=== PATIENT | male | born 1960 | race Caucasian/White ===

== ENCOUNTER 2019-01-10 09:53 | Emergency (ER) | payer OTHER ==
[2019-01-10 10:02] VITALS: BMI 29.0
--- NOTE | 2019-01-10 11:15 | EKG ---
Test Reason : Blood Pressure : / mmHG Vent. Rate : 073 BPM Atrial Rate : 073 BPM P-R Int : 176 ms QRS Dur : 084 ms QT Int : 404 ms P-R-T Axes : 021 -23 137 degrees QTc Int : 445 ms NORMAL SINUS RHYTHM LEFT VENTRICULAR HYPERTROPHY WITH REPOLARIZATION ABNORMALITY ABNORMAL ECG WHEN COMPARED WITH ECG OF 08-AUG-2004 19:06, T WAVE VARIATION Confirmed by CHICHI ARROYO MD ([id number]) on 01/10/2019 11:15:18 AM Referred By: Confirmed By:CHICHI ARROYO MD
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
[2019-01-10 13:47] LABS: BASO % 1.1 % (0-2.0); EOS % 1.7 % (0-4.5); HEMATOCRIT 38.1 % (35.4-49); LYMPH % 28.7 % (8-40); MCH 30.9 pg (25.7-33.7); MCHC 34.2 g/dl (32.0-35.9); MEAN CELL VOLUME 90.3 fl (80-96); MEAN PLT VOLUME 7.7 fl (7.5-11.1); MONO % 7.4 % (3.8-10.2); NEUT % 61.1 % (42.8-82.8); PLATELET COUNT 166 K/MM3 (134-434); RBC 4.22 M/mm3 (4.00-5.60); RDW 13.3 % (11.9-15.9); WHITE BLOOD COUNT 6.2 K/mm3 (4.0-10.0)
[2019-01-10] MEDS ORDERED: BACITRACIN 0.9 GM PACKET ONE (14:11)
[2019-01-10 14:12] LABS: ALBUMIN 2.9 g/dl (3.4-5.0); ALK PHOS 103 U/L (45-117); ANION GAP 7 MMOL/L (8-16); BILIRUBIN,TOTAL 0.6 mg/dL (0.2-1); BLOOD UREA NITROGEN 20.6 mg/dL (7-18); CALCIUM 8.3 mg/dL (8.5-10.1); CHLORIDE 109 mmol/L (98-107); CO2 26 mmol/L (21-32); CREATININE 1.6 mg/dL (0.55-1.3); GLUCOSE,RANDOM 137 mg/dL (74-106); POTASSIUM 3.8 mmol/L (3.5-5.1); SGOT/AST 20 U/L (15-37); SGPT/ALT 26 U/L (13-61); SODIUM 142 mmol/L (136-145); TOT PROT 5.9 g/dl (6.4-8.2)
[2019-01-10 14:26] VITALS: BP 149/86; PULSE 77; TEMP 98.5
[2019-01-11] MEDS ORDERED: BACITRACIN 15 GM TUBE TOPICAL OINTMENT TP SCH (10:00)
== END 2019-01-10 14:53 | disposition home or self-care (01) ==
LOC: JER 09:53
DX: L08.9 Local infection of the skin and subcutaneous tissue, unspecified (principal); I10 Essential (primary) hypertension; E78.5 Hyperlipidemia, unspecified; I25.10 Atherosclerotic heart disease of native coronary artery without angina pectoris; E11.9 Type 2 diabetes mellitus without complications; G89.29 Other chronic pain; W22.8XXA Striking against or struck by other objects, initial encounter; Y93.89 Activity, other specified; Y92.89 Other specified places as the place of occurrence of the external cause
CPT/HCPCS: 36415; 71045-TC-FY; 80048; 80053; 84484; 85025; 93005; 93010; 99282-25

== ENCOUNTER 2021-10-25 10:58 | Inpatient (IN) | payer OTHER ==
[2021-10-25] MEDS ORDERED: SODIUM CHLORIDE 0.9% 500 ML INFUS.BAG IV ONE (11:48)
[2021-10-25 12:01] LABS: VENOUS BASE EXCESS -7.2 mmol/L (-2-2); VENOUS O2 SATURATION 86.4 % (70-80); VENOUS PCO2 47.1 mmHg (38-52)
[2021-10-25 12:01] LABS: HEMATOCRIT 36.6 % (35.4-49); HEMOGLOBIN 11.9 GM/dL (11.7-16.9); MCH 29.3 pg (25.7-33.7); MCHC 32.4 g/dl (32.0-35.9); MEAN CELL VOLUME 90.5 fl (80-96); MEAN PLT VOLUME 7.3 fl (7.5-11.1); PLATELET COUNT 223 10^3/uL (134-434); RBC 4.04 M/mm3 (4.00-5.60)
[2021-10-25 12:06] LABS: VENOUS PH 7.246 (7.310-7.410)
[2021-10-25] MEDS ORDERED: AZITHROMYCIN IVPB 500 MG in DEXTROSE 5%-WATER - 250 ML IVPB ONE (12:13)
[2021-10-25] MEDS ORDERED: CEFTRIAXONE 1 GM in DEXTROSE 5%-WATER - 100 ML IVPB ONE (12:13)
[2021-10-25] MEDS ORDERED: ACETAMINOPHEN 1000 MG/100 ML BAG IVPB ONE (12:15)
[2021-10-25] MEDS ORDERED: CEFTRIAXONE 1 GM/50 ML BAG ONE (12:26)
[2021-10-25] MEDS ORDERED: AZITHROMYCIN IVPB 500 MG/250 ML BAG IVPB ONE (12:26)
[2021-10-25] MEDS ORDERED: ACETAMINOPHEN INJECTION 100 ML IVPB ONE (12:27)
[2021-10-25 12:28] LABS: CALCIUM 8.8 mg/dL (8.5-10.1)
[2021-10-25 12:29] LABS: BLOOD UREA NITROGEN 41.1 mg/dL (7-18)
[2021-10-25 12:31] LABS: CREATININE 2.5 mg/dL (0.55-1.3)
[2021-10-25 12:32] LABS: BILIRUBIN,TOTAL 1.4 mg/dL (0.2-1); TOT PROT 6.3 g/dl (6.4-8.2)
[2021-10-25 12:35] LABS: N-TERMINAL BNP 9745.5 pg/ml (5-125)
[2021-10-25 12:39] LABS: ANISOCYTOSIS 1+; MACROCYTOSIS 0
[2021-10-25] MEDS ORDERED: ASPIRIN 81 MG CHEWABLE TABLETS ONE (16:44)
[2021-10-25] MEDS: ASPIRIN 81 MG CHEWABLE TABLETS PO SCH (16:58)
[2021-10-25] MEDS: INSULIN SLIDING SCALE (NOVOLOG) 1 VIAL SQ SCH ×2 (16:58→22:13)
[2021-10-25] MEDS ORDERED: PIPERACILLIN/TAZOB 2.25 GM 2.25 GM in DEXTROSE 5%-WATER - 50 ML IVPB SCH (18:00)
[2021-10-25 18:14] LABS: EPI CELLS 13 /uL (0-25.1); HYALINE CASTS 3 /uL (0-3.1); URINE APPEARANCE CLEAR; URINE BACTERIA 6 /uL (0-1359); URINE BILIRUBIN NEGATIVE (NEGATIVE); URINE COLOR YELLOW; URINE GLUCOSE (UA) 2+ (NEGATIVE); URINE KETONE NEGATIVE (NEGATIVE); URINE LEUK ESTERASE NEGATIVE (NEGATIVE); URINE NITRITE NEGATIVE (NEGATIVE); URINE PROTEIN 4+ (NEGATIVE); URINE RBC 4 /uL (0-23.9); URINE UROBILINOGEN 0.2 mg/dL (0.2-1.0); URINE WBC 11 /uL (0-25.8)
[2021-10-25] MEDS ORDERED: PIPERACILLIN/TAZOB 2.25 GM 2.25 GM/50 ML BAG IVPB ONE (18:43)
[2021-10-25] MEDS ORDERED: METOPROLOL TARTRATE 50 MG TABLET (FP) PO ONE (18:58)
[2021-10-25] MEDS ORDERED: HEPARIN NA (PORCINE) 5,000 UNITS/ML 1ML VIAL IVPUSH ONE (18:59)
[2021-10-25] MEDS ORDERED: HEPARIN NA (PORCINE) 5,000 UNITS/ML 1ML VIAL IVPUSH PRN (19:01)
[2021-10-25] MEDS: PIPERACILLIN/TAZOB 2.25 GM 2.25 GM in DEXTROSE 5%-WATER - 50 ML IVPB SCH (19:01)
[2021-10-25] MEDS ORDERED: METOPROLOL TARTRATE 50 MG TABLET (FP) ONE (20:23)
[2021-10-25] MEDS ORDERED: HEPARIN NA (PORCINE) 5,000 UNITS/ML 1ML VIAL ONE (20:24)
[2021-10-25] MEDS ORDERED: HEPARIN INFUSION - 25,000 UNITS/500 ML INFUS.BAG IVPB ONE (20:24)
[2021-10-25] MEDS: HEPARIN - 25,000 UNIT in SODIUM CHLORIDE 495 ML IV SCH (20:37)
[2021-10-25] MEDS ORDERED: SODIUM CHLORIDE 1,000 ML IV SCH (21:00)
[2021-10-25] MEDS ORDERED: HEPARIN NA (PORCINE) 5,000 UNITS/ML 1ML VIAL SQ SCH (22:00)
[2021-10-25] MEDS ORDERED: METOPROLOL TARTRATE 50 MG TABLET (FP) PO SCH (22:00)
[2021-10-25] MEDS ORDERED: ATORVASTATIN CA 40 MG TABLET (FP) PO SCH (22:00)
[2021-10-25] MEDS ORDERED: ATORVASTATIN CA 80 MG TABLET (FP) ONE (22:03)
[2021-10-25] MEDS ORDERED: INSULIN SLIDING SCALE (NOVOLOG) 1 VIAL SQ ONE (22:03)
[2021-10-25] MEDS: ATORVASTATIN CA 80 MG TABLET (FP) PO SCH (22:14)
[2021-10-26] MEDS ORDERED: DEXTROSE 5%-WATER - 50 ML IVPB ONE ×2 (01:19→09:21)
[2021-10-26] MEDS ORDERED: PIPERACILLIN/TAZOBACTAM 2.25 GM VIAL IVPB ONE ×3 (01:19→14:00)
[2021-10-26] MEDS: PIPERACILLIN/TAZOB 2.25 GM 2.25 GM in DEXTROSE 5%-WATER - 50 ML IVPB SCH ×4 (01:52→17:52)
[2021-10-26] MEDS: HEPARIN NA (PORCINE) 5,000 UNITS/ML 1ML VIAL IVPUSH PRN (04:13)
[2021-10-26] MEDS: INSULIN SLIDING SCALE (NOVOLOG) 1 VIAL SQ SCH ×4 (06:14→23:09)
[2021-10-26 07:33] LABS: BASO % 0.6 % (0-2.0); HEMATOCRIT 30.9 % (35.4-49); HEMOGLOBIN 10.3 GM/dL (11.7-16.9); LYMPH % 8.6 % (8-40); MCH 29.9 pg (25.7-33.7); MCHC 33.3 g/dl (32.0-35.9); MEAN CELL VOLUME 89.7 fl (80-96); MEAN PLT VOLUME 7.9 fl (7.5-11.1); MONO % 6.3 % (3.8-10.2); NEUT % 84.5 % (42.8-82.8); PLATELET COUNT 168 10^3/uL (134-434); RBC 3.45 M/mm3 (4.00-5.60); RDW 14.9 % (11.9-15.9); WHITE BLOOD COUNT 16.6 K/mm3 (4.0-10.0)
[2021-10-26 07:47] LABS: CALCIUM 8.1 mg/dL (8.5-10.1)
[2021-10-26 07:48] LABS: MAGNESIUM 2.1 mg/dL (1.8-2.4)
[2021-10-26 07:49] LABS: ALBUMIN 2.6 g/dl (3.4-5.0); BLOOD UREA NITROGEN 39.1 mg/dL (7-18)
[2021-10-26 07:51] LABS: CREATININE 2.7 mg/dL (0.55-1.3)
[2021-10-26 07:52] LABS: PHOSPHOROUS 3.7 mg/dL (2.5-4.9)
[2021-10-26 07:53] LABS: TOT PROT 5.5 g/dl (6.4-8.2)
[2021-10-26] MEDS: PANTOPRAZOLE 40 MG TABLET PO SCH (09:47)
[2021-10-26] MEDS: CLOPIDOGREL BISULFATE 75 MG TABLET (FP) PO SCH (09:47)
[2021-10-26] MEDS: ASPIRIN 81 MG CHEWABLE TABLETS PO SCH (09:47)
[2021-10-26] MEDS ORDERED: METOPROLOL TARTRATE 50 MG TABLET (FP) PO SCH (10:00)
[2021-10-26] MEDS ORDERED: ASPIRIN 81 MG CHEWABLE TABLETS PO SCH (10:00)
[2021-10-26] MEDS ORDERED: oxyCODONE HCL 5 MG TABLET PO PRN (11:43)
[2021-10-26] MEDS: ACETAMINOPHEN 325 MG TABLET (FP) PO PRN (12:02)
[2021-10-26] MEDS: FUROSEMIDE 40 MG/4 ML INJECTABLE VIAL IVPUSH SCH (14:11)
[2021-10-26] MEDS: METOPROLOL TARTRATE 50 MG TABLET (FP) PO SCH ×2 (14:12→23:15)
[2021-10-26] MEDS: NITROGLYCERIN 2% OINTMENT - 1GM PACKET TD SCH ×3 (14:13→23:30)
[2021-10-26] MEDS: HEPARIN - 25,000 UNIT in SODIUM CHLORIDE 495 ML IV SCH (23:15)
[2021-10-26] MEDS: ATORVASTATIN CA 80 MG TABLET (FP) PO SCH (23:15)
[2021-10-26] MEDS: GABAPENTIN 300 MG CAPSULE PO SCH (23:15)
[2021-10-27] MEDS ORDERED: DEXTROSE 5%-WATER - 50 ML IVPB ONE ×3 (02:06→18:18)
[2021-10-27] MEDS ORDERED: PIPERACILLIN/TAZOBACTAM 2.25 GM VIAL IVPB ONE ×3 (02:06→18:18)
[2021-10-27] MEDS: PIPERACILLIN/TAZOB 2.25 GM 2.25 GM in DEXTROSE 5%-WATER - 50 ML IVPB SCH ×3 (02:41→18:33)
[2021-10-27] MEDS: METOPROLOL TARTRATE 50 MG TABLET (FP) PO SCH ×3 (06:25→21:49)
[2021-10-27] MEDS: INSULIN SLIDING SCALE (NOVOLOG) 1 VIAL SQ SCH ×4 (06:25→21:49)
[2021-10-27] MEDS: NITROGLYCERIN 2% OINTMENT - 1GM PACKET TD SCH ×3 (06:29→21:39)
[2021-10-27 07:47] LABS: BASO % 1.1 % (0-2.0); EOS % 0.4 % (0-4.5); HEMATOCRIT 32.8 % (35.4-49); HEMOGLOBIN 10.7 GM/dL (11.7-16.9); LYMPH % 14.1 % (8-40); MCH 29.5 pg (25.7-33.7); MCHC 32.7 g/dl (32.0-35.9); MEAN CELL VOLUME 90.3 fl (80-96); MEAN PLT VOLUME 8.2 fl (7.5-11.1); MONO % 6.7 % (3.8-10.2); NEUT % 77.7 % (42.8-82.8); PLATELET COUNT 191 10^3/uL (134-434); RBC 3.64 M/mm3 (4.00-5.60); RDW 15.5 % (11.9-15.9); WHITE BLOOD COUNT 13.7 K/mm3 (4.0-10.0)
[2021-10-27 08:11] LABS: CHLORIDE 111 mmol/L (98-107); SODIUM 141 mmol/L (136-145)
[2021-10-27 08:18] LABS: CALCIUM 8.7 mg/dL (8.5-10.1)
[2021-10-27 08:19] LABS: ALBUMIN 2.8 g/dl (3.4-5.0); ANION GAP 10 MMOL/L (8-16); BLOOD UREA NITROGEN 47.6 mg/dL (7-18); CO2 21 mmol/L (21-32); GLUCOSE,RANDOM 128 mg/dL (74-106); MAGNESIUM 2.2 mg/dL (1.8-2.4)
[2021-10-27 08:22] LABS: CREATININE 2.9 mg/dL (0.55-1.3); PHOSPHOROUS 4.4 mg/dL (2.5-4.9); SGOT/AST 111 U/L (15-37); SGPT/ALT 108 U/L (13-61)
[2021-10-27 08:23] LABS: BILIRUBIN,TOTAL 1.3 mg/dL (0.2-1); TOT PROT 5.9 g/dl (6.4-8.2)
[2021-10-27 08:24] LABS: ALK PHOS 90 U/L (45-117)
[2021-10-27] MEDS: HEPARIN NA (PORCINE) 5,000 UNITS/ML 1ML VIAL IVPUSH PRN ×2 (09:26→16:48)
[2021-10-27] MEDS: GABAPENTIN 300 MG CAPSULE PO SCH ×2 (09:28→21:49)
[2021-10-27] MEDS: ASPIRIN 81 MG CHEWABLE TABLETS PO SCH (09:28)
[2021-10-27] MEDS: PANTOPRAZOLE 40 MG TABLET PO SCH (09:28)
[2021-10-27] MEDS: CLOPIDOGREL BISULFATE 75 MG TABLET (FP) PO SCH (09:28)
[2021-10-27] MEDS: FUROSEMIDE 40 MG/4 ML INJECTABLE VIAL IVPUSH SCH (09:28)
[2021-10-27] MEDS: PSYLLIUM 5.85 GM PACKET PO SCH (12:31)
[2021-10-27] MEDS: ATORVASTATIN CA 80 MG TABLET (FP) PO SCH (21:49)
[2021-10-28] MEDS ORDERED: PIPERACILLIN/TAZOBACTAM 2.25 GM VIAL IVPB ONE ×3 (00:23→17:19)
[2021-10-28] MEDS ORDERED: DEXTROSE 5%-WATER - 50 ML IVPB ONE ×3 (00:25→17:19)
[2021-10-28] MEDS: NITROGLYCERIN 2% OINTMENT - 1GM PACKET TD SCH ×4 (00:35→17:53)
[2021-10-28] MEDS: HEPARIN - 25,000 UNIT in SODIUM CHLORIDE 495 ML IV SCH (01:00)
[2021-10-28] MEDS: PIPERACILLIN/TAZOB 2.25 GM 2.25 GM in DEXTROSE 5%-WATER - 50 ML IVPB SCH ×3 (01:34→17:53)
[2021-10-28] MEDS: METOPROLOL TARTRATE 50 MG TABLET (FP) PO SCH ×3 (06:39→21:39)
[2021-10-28] MEDS: INSULIN SLIDING SCALE (NOVOLOG) 1 VIAL SQ SCH ×4 (06:39→21:44)
[2021-10-28] MEDS: ACETAMINOPHEN 325 MG TABLET (FP) PO PRN (06:44)
[2021-10-28 07:40] LABS: BASO % 1.1 % (0-2.0); EOS % 1.4 % (0-4.5); HEMOGLOBIN 9.6 GM/dL (11.7-16.9); LYMPH % 15.3 % (8-40); MCH 29.9 pg (25.7-33.7); MCHC 33.3 g/dl (32.0-35.9); MEAN PLT VOLUME 8.1 fl (7.5-11.1); MONO % 6.8 % (3.8-10.2); NEUT % 75.4 % (42.8-82.8); PLATELET COUNT 166 10^3/uL (134-434); RBC 3.22 M/mm3 (4.00-5.60); RDW 15.1 % (11.9-15.9); WHITE BLOOD COUNT 8.9 K/mm3 (4.0-10.0)
[2021-10-28 08:05] LABS: BLOOD UREA NITROGEN 55.4 mg/dL (7-18); CALCIUM 8.1 mg/dL (8.5-10.1)
[2021-10-28 08:08] LABS: CREATININE 3.1 mg/dL (0.55-1.3)
[2021-10-28 08:10] LABS: BLOOD UREA NITROGEN 53.4 mg/dL (7-18); CREATININE 3.2 mg/dL (0.55-1.3)
[2021-10-28 08:11] LABS: ALBUMIN 2.4 g/dl (3.4-5.0); BILIRUBIN,TOTAL 1.1 mg/dL (0.2-1); MAGNESIUM 2.2 mg/dL (1.8-2.4); TOT PROT 5.5 g/dl (6.4-8.2)
[2021-10-28 08:13] LABS: BILIRUBIN,DIRECT 0.3 mg/dL (0.0-0.2); PHOSPHOROUS 4.1 mg/dL (2.5-4.9)
[2021-10-28] MEDS: GABAPENTIN 300 MG CAPSULE PO SCH ×2 (09:44→21:39)
[2021-10-28] MEDS: ASPIRIN 81 MG CHEWABLE TABLETS PO SCH (09:44)
[2021-10-28] MEDS: CLOPIDOGREL BISULFATE 75 MG TABLET (FP) PO SCH (09:44)
[2021-10-28] MEDS: PANTOPRAZOLE 40 MG TABLET PO SCH (09:44)
[2021-10-28] MEDS: PSYLLIUM 5.85 GM PACKET PO SCH (13:46)
[2021-10-28] MEDS ORDERED: HEPARIN NA (PORCINE) 5,000 UNITS/ML 1ML VIAL IVPUSH PRN ×2 (21:28)
[2021-10-28] MEDS ORDERED: HEPARIN - 25,000 UNIT in SODIUM CHLORIDE 495 ML IV SCH (21:30)
[2021-10-28] MEDS: ATORVASTATIN CA 80 MG TABLET (FP) PO SCH (21:39)
[2021-10-29] MEDS ORDERED: PIPERACILLIN/TAZOBACTAM 2.25 GM VIAL IVPB ONE ×3 (00:50→19:15)
[2021-10-29] MEDS ORDERED: DEXTROSE 5%-WATER - 50 ML IVPB ONE ×3 (00:50→19:15)
[2021-10-29] MEDS: NITROGLYCERIN 2% OINTMENT - 1GM PACKET TD SCH ×4 (01:00→19:16)
[2021-10-29] MEDS: PIPERACILLIN/TAZOB 2.25 GM 2.25 GM in DEXTROSE 5%-WATER - 50 ML IVPB SCH ×3 (02:30→19:16)
[2021-10-29] MEDS: METOPROLOL TARTRATE 50 MG TABLET (FP) PO SCH ×3 (05:52→22:17)
[2021-10-29] MEDS: INSULIN SLIDING SCALE (NOVOLOG) 1 VIAL SQ SCH ×4 (06:48→22:20)
[2021-10-29 07:49] LABS: CALCIUM 8.2 mg/dL (8.5-10.1)
[2021-10-29 07:50] LABS: BLOOD UREA NITROGEN 51.3 mg/dL (7-18)
[2021-10-29] MEDS: ASPIRIN 81 MG CHEWABLE TABLETS PO SCH (09:42)
[2021-10-29] MEDS: GABAPENTIN 300 MG CAPSULE PO SCH ×2 (09:43→22:12)
[2021-10-29] MEDS: CLOPIDOGREL BISULFATE 75 MG TABLET (FP) PO SCH (09:43)
[2021-10-29] MEDS: PANTOPRAZOLE 40 MG TABLET PO SCH (09:43)
[2021-10-29] MEDS: PSYLLIUM 5.85 GM PACKET PO SCH (09:43)
[2021-10-29] MEDS ORDERED: FUROSEMIDE 40 MG/4 ML INJECTABLE VIAL IVPUSH ONE (13:17)
[2021-10-29] MEDS: HEPARIN NA (PORCINE) 5,000 UNITS/ML 1ML VIAL SQ SCH ×2 (14:49→22:13)
[2021-10-29] MEDS: ATORVASTATIN CA 80 MG TABLET (FP) PO SCH (22:12)
[2021-10-29] MEDS: hydrALAZINE HCL 25 MG TABLET (FP) PO SCH (22:17)
[2021-10-30] MEDS: NITROGLYCERIN 2% OINTMENT - 1GM PACKET TD SCH ×4 (01:00→17:36)
[2021-10-30] MEDS ORDERED: PIPERACILLIN/TAZOBACTAM 2.25 GM VIAL IVPB ONE ×3 (01:15→17:28)
[2021-10-30] MEDS ORDERED: DEXTROSE 5%-WATER - 50 ML IVPB ONE ×3 (01:15→17:28)
[2021-10-30] MEDS: PIPERACILLIN/TAZOB 2.25 GM 2.25 GM in DEXTROSE 5%-WATER - 50 ML IVPB SCH ×3 (01:30→17:36)
[2021-10-30] MEDS: HEPARIN NA (PORCINE) 5,000 UNITS/ML 1ML VIAL SQ SCH ×3 (06:26→21:07)
[2021-10-30] MEDS: METOPROLOL TARTRATE 50 MG TABLET (FP) PO SCH ×3 (06:26→21:08)
[2021-10-30] MEDS: hydrALAZINE HCL 25 MG TABLET (FP) PO SCH ×3 (06:26→21:06)
[2021-10-30] MEDS: INSULIN SLIDING SCALE (NOVOLOG) 1 VIAL SQ SCH ×4 (06:26→21:15)
[2021-10-30] MEDS ORDERED: INSULIN (LEVEMIR) 100 UNITS/ML UNITS SQ SCH (07:00)
[2021-10-30 07:23] LABS: BASO % 1.4 % (0-2.0); HEMATOCRIT 29.1 % (35.4-49); HEMOGLOBIN 9.7 GM/dL (11.7-16.9); LYMPH % 21.4 % (8-40); MCH 29.9 pg (25.7-33.7); MCHC 33.3 g/dl (32.0-35.9); MEAN CELL VOLUME 89.9 fl (80-96); MEAN PLT VOLUME 8.1 fl (7.5-11.1); MONO % 9.6 % (3.8-10.2); NEUT % 64.6 % (42.8-82.8); PLATELET COUNT 175 10^3/uL (134-434); RBC 3.24 M/mm3 (4.00-5.60); RDW 15.3 % (11.9-15.9); WHITE BLOOD COUNT 6.5 K/mm3 (4.0-10.0)
[2021-10-30 07:56] LABS: CALCIUM 8.4 mg/dL (8.5-10.1)
[2021-10-30 07:58] LABS: CREATININE 3.1 mg/dL (0.55-1.3); PHOSPHOROUS 4.8 mg/dL (2.5-4.9)
[2021-10-30 07:59] LABS: ALBUMIN 2.5 g/dl (3.4-5.0); MAGNESIUM 2.3 mg/dL (1.8-2.4)
[2021-10-30 08:00] LABS: BILIRUBIN,TOTAL 0.8 mg/dL (0.2-1); TOT PROT 5.6 g/dl (6.4-8.2)
[2021-10-30] MEDS: GABAPENTIN 300 MG CAPSULE PO SCH ×2 (10:05→21:07)
[2021-10-30] MEDS: PANTOPRAZOLE 40 MG TABLET PO SCH (10:05)
[2021-10-30] MEDS: CLOPIDOGREL BISULFATE 75 MG TABLET (FP) PO SCH (10:05)
[2021-10-30] MEDS: ASPIRIN 81 MG CHEWABLE TABLETS PO SCH (10:05)
[2021-10-30] MEDS: INSULIN (LEVEMIR) 100 UNITS/ML UNITS SQ SCH (10:12)
[2021-10-30 10:48] VITALS: BMI 28.8
[2021-10-30] MEDS: FUROSEMIDE 40 MG/4 ML INJECTABLE VIAL IVPUSH SCH (12:04)
[2021-10-30] MEDS: PSYLLIUM 5.85 GM PACKET PO SCH (12:05)
[2021-10-30 12:17] LABS: ANTIGLOMERULAR BASEMENT MEN.AB 5 units (0-20)
[2021-10-30 16:08] LABS: ATYPICAL pANCA <1:20 titer (Neg:<1:20); C-ANCA <1:20 titer (Neg:<1:20)
[2021-10-30] MEDS: ATORVASTATIN CA 80 MG TABLET (FP) PO SCH (21:07)
[2021-10-31] MEDS ORDERED: DEXTROSE 5%-WATER - 50 ML IVPB ONE ×3 (01:21→16:48)
[2021-10-31] MEDS ORDERED: PIPERACILLIN/TAZOBACTAM 2.25 GM VIAL IVPB ONE ×3 (01:21→16:48)
[2021-10-31] MEDS: NITROGLYCERIN 2% OINTMENT - 1GM PACKET TD SCH ×4 (01:28→17:37)
[2021-10-31] MEDS: PIPERACILLIN/TAZOB 2.25 GM 2.25 GM in DEXTROSE 5%-WATER - 50 ML IVPB SCH ×3 (01:28→17:37)
[2021-10-31] MEDS: hydrALAZINE HCL 25 MG TABLET (FP) PO SCH ×3 (06:44→22:39)
[2021-10-31] MEDS: HEPARIN NA (PORCINE) 5,000 UNITS/ML 1ML VIAL SQ SCH ×3 (06:44→22:39)
[2021-10-31] MEDS: METOPROLOL TARTRATE 50 MG TABLET (FP) PO SCH ×3 (06:45→22:39)
[2021-10-31] MEDS: INSULIN SLIDING SCALE (NOVOLOG) 1 VIAL SQ SCH ×4 (06:47→23:00)
[2021-10-31] MEDS: INSULIN (LEVEMIR) 100 UNITS/ML UNITS SQ SCH (06:54)
[2021-10-31 07:45] LABS: CALCIUM 8.4 mg/dL (8.5-10.1)
[2021-10-31 07:46] LABS: ALBUMIN 2.5 g/dl (3.4-5.0); BLOOD UREA NITROGEN 51.5 mg/dL (7-18); HEMATOCRIT 29.3 % (35.4-49); HEMOGLOBIN 9.7 GM/dL (11.7-16.9); MAGNESIUM 2.4 mg/dL (1.8-2.4); MCH 29.9 pg (25.7-33.7); MCHC 33.1 g/dl (32.0-35.9); MEAN CELL VOLUME 90.4 fl (80-96); MEAN PLT VOLUME 8.3 fl (7.5-11.1); PLATELET COUNT 183 10^3/uL (134-434); RBC 3.24 M/mm3 (4.00-5.60); RDW 14.9 % (11.9-15.9); WHITE BLOOD COUNT 6.6 K/mm3 (4.0-10.0)
[2021-10-31 07:49] LABS: CREATININE 3.3 mg/dL (0.55-1.3)
[2021-10-31 07:51] LABS: BILIRUBIN,TOTAL 0.8 mg/dL (0.2-1); TOT PROT 5.9 g/dl (6.4-8.2)
[2021-10-31] MEDS: PANTOPRAZOLE 40 MG TABLET PO SCH (09:35)
[2021-10-31] MEDS: PSYLLIUM 5.85 GM PACKET PO SCH (09:35)
[2021-10-31] MEDS: FUROSEMIDE 40 MG/4 ML INJECTABLE VIAL IVPUSH SCH (09:35)
[2021-10-31] MEDS: CLOPIDOGREL BISULFATE 75 MG TABLET (FP) PO SCH (09:35)
[2021-10-31] MEDS: ASPIRIN 81 MG CHEWABLE TABLETS PO SCH (09:35)
[2021-10-31] MEDS: GABAPENTIN 300 MG CAPSULE PO SCH ×2 (09:35→22:38)
[2021-10-31] MEDS: BACITRACIN 15 GM TUBE TOPICAL OINTMENT TP SCH (19:07)
[2021-10-31] MEDS: ATORVASTATIN CA 80 MG TABLET (FP) PO SCH (22:37)
[2021-10-31] MEDS: MELATONIN 5 MG TABLETS PO PRN (22:38)
[2021-11-01] MEDS: ACETAMINOPHEN 325 MG TABLET (FP) PO PRN (00:10)
[2021-11-01] MEDS: NITROGLYCERIN 2% OINTMENT - 1GM PACKET TD SCH ×5 (00:12→17:38)
[2021-11-01] MEDS ORDERED: PIPERACILLIN/TAZOBACTAM 2.25 GM VIAL IVPB ONE ×3 (02:07→21:16)
[2021-11-01] MEDS ORDERED: DEXTROSE 5%-WATER - 50 ML IVPB ONE ×3 (02:08→21:17)
[2021-11-01] MEDS: PIPERACILLIN/TAZOB 2.25 GM 2.25 GM in DEXTROSE 5%-WATER - 50 ML IVPB SCH ×3 (02:55→21:58)
[2021-11-01] MEDS: HEPARIN NA (PORCINE) 5,000 UNITS/ML 1ML VIAL SQ SCH ×3 (07:12→21:59)
[2021-11-01] MEDS: hydrALAZINE HCL 25 MG TABLET (FP) PO SCH ×2 (07:12→13:17)
[2021-11-01] MEDS: METOPROLOL TARTRATE 50 MG TABLET (FP) PO SCH ×3 (07:13→21:58)
[2021-11-01] MEDS: INSULIN (LEVEMIR) 100 UNITS/ML UNITS SQ SCH (07:18)
[2021-11-01] MEDS: INSULIN SLIDING SCALE (NOVOLOG) 1 VIAL SQ SCH ×4 (07:18→22:06)
[2021-11-01] MEDS: ASPIRIN 81 MG CHEWABLE TABLETS PO SCH (10:02)
[2021-11-01] MEDS: CLOPIDOGREL BISULFATE 75 MG TABLET (FP) PO SCH (10:02)
[2021-11-01] MEDS: PANTOPRAZOLE 40 MG TABLET PO SCH (10:02)
[2021-11-01] MEDS: GABAPENTIN 300 MG CAPSULE PO SCH ×2 (10:02→21:58)
[2021-11-01] MEDS: FUROSEMIDE 40 MG/4 ML INJECTABLE VIAL IVPUSH SCH (10:02)
[2021-11-01] MEDS: BACITRACIN 15 GM TUBE TOPICAL OINTMENT TP SCH (10:03)
[2021-11-01] MEDS: PSYLLIUM 5.85 GM PACKET PO SCH (10:03)
[2021-11-01 21:05] LABS: BASO % 1.3 % (0-2.0); EOS % 1.1 % (0-4.5); HEMATOCRIT 31.6 % (35.4-49); HEMOGLOBIN 10.7 GM/dL (11.7-16.9); MCH 30.1 pg (25.7-33.7); MCHC 33.8 g/dl (32.0-35.9); MEAN CELL VOLUME 89.1 fl (80-96); MEAN PLT VOLUME 8.1 fl (7.5-11.1); MONO % 7.7 % (3.8-10.2); NEUT % 80.9 % (42.8-82.8); PLATELET COUNT 194 10^3/uL (134-434); RBC 3.54 M/mm3 (4.00-5.60); RDW 15.4 % (11.9-15.9); WHITE BLOOD COUNT 9.8 K/mm3 (4.0-10.0)
[2021-11-01 21:26] LABS: CALCIUM 8.6 mg/dL (8.5-10.1)
[2021-11-01 21:27] LABS: ALBUMIN 2.8 g/dl (3.4-5.0); MAGNESIUM 2.4 mg/dL (1.8-2.4)
[2021-11-01 21:30] LABS: CREATININE 3.6 mg/dL (0.55-1.3); PHOSPHOROUS 4.8 mg/dL (2.5-4.9)
[2021-11-01 21:31] LABS: TOT PROT 6.4 g/dl (6.4-8.2)
[2021-11-01 21:32] LABS: BILIRUBIN,TOTAL 0.4 mg/dL (0.2-1)
[2021-11-01] MEDS: ATORVASTATIN CA 80 MG TABLET (FP) PO SCH (21:56)
[2021-11-01] MEDS: MELATONIN 5 MG TABLETS PO PRN (21:59)
[2021-11-02] MEDS ORDERED: PIPERACILLIN/TAZOBACTAM 2.25 GM VIAL IVPB ONE ×3 (03:21→19:39)
[2021-11-02] MEDS ORDERED: DEXTROSE 5%-WATER - 50 ML IVPB ONE ×3 (03:21→19:40)
[2021-11-02] MEDS: PIPERACILLIN/TAZOB 2.25 GM 2.25 GM in DEXTROSE 5%-WATER - 50 ML IVPB SCH ×3 (06:01→21:59)
[2021-11-02] MEDS: INSULIN SLIDING SCALE (NOVOLOG) 1 VIAL SQ SCH ×4 (06:05→22:21)
[2021-11-02] MEDS: hydrALAZINE HCL 25 MG TABLET (FP) PO SCH ×3 (06:07→21:59)
[2021-11-02] MEDS: NITROGLYCERIN 2% OINTMENT - 1GM PACKET TD SCH ×3 (06:07→17:29)
[2021-11-02] MEDS: INSULIN (LEVEMIR) 100 UNITS/ML UNITS SQ SCH (06:08)
[2021-11-02] MEDS: HEPARIN NA (PORCINE) 5,000 UNITS/ML 1ML VIAL SQ SCH ×3 (06:08→21:58)
[2021-11-02] MEDS: METOPROLOL TARTRATE 50 MG TABLET (FP) PO SCH ×3 (06:23→21:59)
[2021-11-02 08:03] LABS: HEMATOCRIT 29.7 % (35.4-49); HEMOGLOBIN 9.9 GM/dL (11.7-16.9); MCH 29.9 pg (25.7-33.7); MCHC 33.4 g/dl (32.0-35.9); MEAN CELL VOLUME 89.6 fl (80-96); MEAN PLT VOLUME 8.4 fl (7.5-11.1); PLATELET COUNT 193 10^3/uL (134-434); RBC 3.31 M/mm3 (4.00-5.60); WHITE BLOOD COUNT 8.4 K/mm3 (4.0-10.0)
[2021-11-02 08:07] LABS: BASO % 1.3 % (0-2.0); HEMATOCRIT 29.3 % (35.4-49); HEMOGLOBIN 9.9 GM/dL (11.7-16.9); LYMPH % 11.8 % (8-40); MCH 30.1 pg (25.7-33.7); MCHC 33.7 g/dl (32.0-35.9); MEAN CELL VOLUME 89.4 fl (80-96); MEAN PLT VOLUME 8.3 fl (7.5-11.1); MONO % 8.6 % (3.8-10.2); NEUT % 77.3 % (42.8-82.8); PLATELET COUNT 204 10^3/uL (134-434); RBC 3.28 M/mm3 (4.00-5.60); WHITE BLOOD COUNT 8.5 K/mm3 (4.0-10.0)
[2021-11-02 08:22] LABS: CALCIUM 8.6 mg/dL (8.5-10.1)
[2021-11-02 08:23] LABS: ALBUMIN 2.7 g/dl (3.4-5.0); MAGNESIUM 2.2 mg/dL (1.8-2.4)
[2021-11-02 08:25] LABS: CREATININE 3.4 mg/dL (0.55-1.3); PHOSPHOROUS 4.4 mg/dL (2.5-4.9)
[2021-11-02 08:28] LABS: BILIRUBIN,TOTAL 1.1 mg/dL (0.2-1); TOT PROT 6.2 g/dl (6.4-8.2)
[2021-11-02 08:29] LABS: BLOOD UREA NITROGEN 54.2 mg/dL (7-18)
[2021-11-02] MEDS: FUROSEMIDE 40 MG/4 ML INJECTABLE VIAL IVPUSH SCH (10:39)
[2021-11-02] MEDS: PANTOPRAZOLE 40 MG TABLET PO SCH (10:39)
[2021-11-02] MEDS: GABAPENTIN 300 MG CAPSULE PO SCH ×2 (10:40→22:05)
[2021-11-02] MEDS: CLOPIDOGREL BISULFATE 75 MG TABLET (FP) PO SCH (10:40)
[2021-11-02] MEDS: ASPIRIN 81 MG CHEWABLE TABLETS PO SCH (10:40)
[2021-11-02] MEDS: BACITRACIN 15 GM TUBE TOPICAL OINTMENT TP SCH (10:40)
[2021-11-02] MEDS: PSYLLIUM 5.85 GM PACKET PO SCH (16:11)
[2021-11-02] MEDS: ACETAMINOPHEN 325 MG TABLET (FP) PO PRN (22:00)
[2021-11-02] MEDS: ATORVASTATIN CA 80 MG TABLET (FP) PO SCH (22:00)
[2021-11-03] MEDS: NITROGLYCERIN 2% OINTMENT - 1GM PACKET TD SCH ×4 (06:26→18:46)
[2021-11-03] MEDS: PIPERACILLIN/TAZOB 2.25 GM 2.25 GM in DEXTROSE 5%-WATER - 50 ML IVPB SCH ×3 (06:26→22:52)
[2021-11-03] MEDS: hydrALAZINE HCL 25 MG TABLET (FP) PO SCH ×3 (06:27→22:52)
[2021-11-03] MEDS: HEPARIN NA (PORCINE) 5,000 UNITS/ML 1ML VIAL SQ SCH ×3 (06:27→22:52)
[2021-11-03] MEDS: METOPROLOL TARTRATE 50 MG TABLET (FP) PO SCH ×3 (06:28→22:52)
[2021-11-03] MEDS: INSULIN (LEVEMIR) 100 UNITS/ML UNITS SQ SCH (06:28)
[2021-11-03] MEDS: INSULIN SLIDING SCALE (NOVOLOG) 1 VIAL SQ SCH ×4 (06:36→23:00)
[2021-11-03 06:58] LABS: HEMATOCRIT 29.7 % (35.4-49); MCHC 33.5 g/dl (32.0-35.9); MEAN CELL VOLUME 89.4 fl (80-96); MEAN PLT VOLUME 8.1 fl (7.5-11.1); PLATELET COUNT 196 10^3/uL (134-434); RBC 3.33 M/mm3 (4.00-5.60); RDW 15.1 % (11.9-15.9); WHITE BLOOD COUNT 6.3 K/mm3 (4.0-10.0)
[2021-11-03 07:34] LABS: ALBUMIN 2.6 g/dl (3.4-5.0); BLOOD UREA NITROGEN 55.3 mg/dL (7-18); CALCIUM 8.2 mg/dL (8.5-10.1); MAGNESIUM 2.4 mg/dL (1.8-2.4)
[2021-11-03 07:36] LABS: PHOSPHOROUS 5.2 mg/dL (2.5-4.9)
[2021-11-03 07:37] LABS: CREATININE 3.7 mg/dL (0.55-1.3)
[2021-11-03 07:38] LABS: BILIRUBIN,TOTAL 0.6 mg/dL (0.2-1); TOT PROT 6.4 g/dl (6.4-8.2)
[2021-11-03] MEDS: PANTOPRAZOLE 40 MG TABLET PO SCH (09:47)
[2021-11-03] MEDS: CLOPIDOGREL BISULFATE 75 MG TABLET (FP) PO SCH (09:47)
[2021-11-03] MEDS: ASPIRIN 81 MG CHEWABLE TABLETS PO SCH (09:47)
[2021-11-03] MEDS: GABAPENTIN 300 MG CAPSULE PO SCH ×2 (09:47→22:52)
[2021-11-03] MEDS: PSYLLIUM 5.85 GM PACKET PO SCH (09:53)
[2021-11-03] MEDS: BACITRACIN 15 GM TUBE TOPICAL OINTMENT TP SCH (09:53)
[2021-11-03] MEDS: FUROSEMIDE 40 MG/4 ML INJECTABLE VIAL IVPUSH SCH (09:53)
[2021-11-03] MEDS ORDERED: DEXTROSE 5%-WATER - 50 ML IVPB ONE ×2 (12:45→20:50)
[2021-11-03] MEDS ORDERED: PIPERACILLIN/TAZOBACTAM 2.25 GM VIAL IVPB ONE ×2 (12:45→20:50)
[2021-11-03] MEDS: ATORVASTATIN CA 80 MG TABLET (FP) PO SCH (22:52)
[2021-11-03] MEDS: MELATONIN 5 MG TABLETS PO PRN (22:52)
[2021-11-04] MEDS ORDERED: DEXTROSE 5%-WATER - 50 ML IVPB ONE ×3 (02:49→21:48)
[2021-11-04] MEDS ORDERED: PIPERACILLIN/TAZOBACTAM 2.25 GM VIAL IVPB ONE ×3 (02:49→21:48)
[2021-11-04] MEDS: PIPERACILLIN/TAZOB 2.25 GM 2.25 GM in DEXTROSE 5%-WATER - 50 ML IVPB SCH ×3 (05:00→21:29)
[2021-11-04] MEDS: NITROGLYCERIN 2% OINTMENT - 1GM PACKET TD SCH ×4 (06:22→17:00)
[2021-11-04] MEDS: INSULIN (LEVEMIR) 100 UNITS/ML UNITS SQ SCH (06:23)
[2021-11-04] MEDS: hydrALAZINE HCL 25 MG TABLET (FP) PO SCH ×3 (06:23→23:30)
[2021-11-04] MEDS: METOPROLOL TARTRATE 50 MG TABLET (FP) PO SCH ×3 (06:23→23:29)
[2021-11-04] MEDS: INSULIN SLIDING SCALE (NOVOLOG) 1 VIAL SQ SCH ×3 (06:23→17:04)
[2021-11-04] MEDS: HEPARIN NA (PORCINE) 5,000 UNITS/ML 1ML VIAL SQ SCH ×3 (06:23→23:30)
[2021-11-04 07:23] LABS: CALCIUM 8.1 mg/dL (8.5-10.1)
[2021-11-04 07:24] LABS: MAGNESIUM 2.5 mg/dL (1.8-2.4)
[2021-11-04 07:26] LABS: ALBUMIN 2.4 g/dl (3.4-5.0); BLOOD UREA NITROGEN 60.3 mg/dL (7-18)
[2021-11-04 07:27] LABS: CREATININE 3.8 mg/dL (0.55-1.3)
[2021-11-04 07:28] LABS: BILIRUBIN,TOTAL 0.7 mg/dL (0.2-1); TOT PROT 5.7 g/dl (6.4-8.2)
[2021-11-04] MEDS: GABAPENTIN 300 MG CAPSULE PO SCH ×2 (10:13→23:30)
[2021-11-04] MEDS: PANTOPRAZOLE 40 MG TABLET PO SCH (10:13)
[2021-11-04] MEDS: PSYLLIUM 5.85 GM PACKET PO SCH (10:13)
[2021-11-04] MEDS: ASPIRIN 81 MG CHEWABLE TABLETS PO SCH (10:13)
[2021-11-04] MEDS: CLOPIDOGREL BISULFATE 75 MG TABLET (FP) PO SCH (10:13)
[2021-11-04] MEDS: BACITRACIN 15 GM TUBE TOPICAL OINTMENT TP SCH (10:13)
[2021-11-04] MEDS ORDERED: VANCOMYCIN HCL 1,500 MG in DEXTROSE 5%-WATER - 500 ML IVPB SCH (16:15)
[2021-11-04] MEDS ORDERED: VANCOMYCIN PREMIX 1.5 GM 1,500 MG/300 ML BAG IVPB SCH (17:00)
[2021-11-04] MEDS ORDERED: CLOTRIMAZOLE 1% CREAM TP SCH (22:00)
[2021-11-04] MEDS: MELATONIN 5 MG TABLETS PO PRN (23:29)
[2021-11-04] MEDS: ATORVASTATIN CA 80 MG TABLET (FP) PO SCH (23:30)
[2021-11-05] MEDS: NITROGLYCERIN 2% OINTMENT - 1GM PACKET TD SCH ×4 (00:19→17:34)
[2021-11-05] MEDS: CLOTRIMAZOLE 1% CREAM TP SCH ×3 (00:19→21:31)
[2021-11-05] MEDS: INSULIN SLIDING SCALE (NOVOLOG) 1 VIAL SQ SCH ×5 (00:19→21:30)
[2021-11-05] MEDS ORDERED: PIPERACILLIN/TAZOBACTAM 2.25 GM VIAL IVPB ONE ×2 (02:53→11:47)
[2021-11-05] MEDS ORDERED: DEXTROSE 5%-WATER - 50 ML IVPB ONE ×2 (02:53→11:47)
[2021-11-05] MEDS: PIPERACILLIN/TAZOB 2.25 GM 2.25 GM in DEXTROSE 5%-WATER - 50 ML IVPB SCH ×2 (05:30→11:48)
[2021-11-05] MEDS: HEPARIN NA (PORCINE) 5,000 UNITS/ML 1ML VIAL SQ SCH ×3 (06:11→21:31)
[2021-11-05] MEDS: METOPROLOL TARTRATE 50 MG TABLET (FP) PO SCH ×3 (06:11→21:31)
[2021-11-05] MEDS: hydrALAZINE HCL 25 MG TABLET (FP) PO SCH ×3 (06:11→21:30)
[2021-11-05] MEDS: INSULIN (LEVEMIR) 100 UNITS/ML UNITS SQ SCH (06:12)
[2021-11-05 08:19] LABS: HEMATOCRIT 27.9 % (35.4-49); HEMOGLOBIN 9.4 GM/dL (11.7-16.9); MCHC 33.6 g/dl (32.0-35.9); MEAN CELL VOLUME 89.3 fl (80-96); MEAN PLT VOLUME 8.2 fl (7.5-11.1); PLATELET COUNT 213 10^3/uL (134-434); RBC 3.12 M/mm3 (4.00-5.60); RDW 15.1 % (11.9-15.9); WHITE BLOOD COUNT 7.1 K/mm3 (4.0-10.0)
[2021-11-05 08:37] LABS: ALBUMIN 2.4 g/dl (3.4-5.0); CALCIUM 8.3 mg/dL (8.5-10.1); MAGNESIUM 2.3 mg/dL (1.8-2.4)
[2021-11-05 08:38] LABS: BLOOD UREA NITROGEN 57.6 mg/dL (7-18)
[2021-11-05 08:40] LABS: PHOSPHOROUS 4.9 mg/dL (2.5-4.9)
[2021-11-05 08:42] LABS: BILIRUBIN,TOTAL 0.6 mg/dL (0.2-1); CREATININE 3.5 mg/dL (0.55-1.3); TOT PROT 6.1 g/dl (6.4-8.2)
[2021-11-05] MEDS: CLOPIDOGREL BISULFATE 75 MG TABLET (FP) PO SCH (09:49)
[2021-11-05] MEDS: PSYLLIUM 5.85 GM PACKET PO SCH (09:49)
[2021-11-05] MEDS: ASPIRIN 81 MG CHEWABLE TABLETS PO SCH (09:49)
[2021-11-05] MEDS: PANTOPRAZOLE 40 MG TABLET PO SCH (09:49)
[2021-11-05] MEDS: GABAPENTIN 300 MG CAPSULE PO SCH ×2 (09:49→21:30)
[2021-11-05] MEDS: BACITRACIN 15 GM TUBE TOPICAL OINTMENT TP SCH (09:49)
[2021-11-05] MEDS: ACETAMINOPHEN 325 MG TABLET (FP) PO PRN (17:42)
[2021-11-05] MEDS: MELATONIN 5 MG TABLETS PO PRN (21:30)
[2021-11-05] MEDS: ATORVASTATIN CA 80 MG TABLET (FP) PO SCH (21:30)
[2021-11-05] MEDS ORDERED: SENNOSIDES 8.6MG TABLET (FP) PO SCH (22:00)
[2021-11-06] MEDS: NITROGLYCERIN 2% OINTMENT - 1GM PACKET TD SCH ×4 (00:16→18:01)
[2021-11-06] MEDS: METOPROLOL TARTRATE 50 MG TABLET (FP) PO SCH ×3 (06:17→21:12)
[2021-11-06] MEDS: INSULIN (LEVEMIR) 100 UNITS/ML UNITS SQ SCH (06:17)
[2021-11-06] MEDS: hydrALAZINE HCL 25 MG TABLET (FP) PO SCH ×3 (06:17→21:12)
[2021-11-06] MEDS: HEPARIN NA (PORCINE) 5,000 UNITS/ML 1ML VIAL SQ SCH ×3 (06:17→21:12)
[2021-11-06] MEDS: INSULIN SLIDING SCALE (NOVOLOG) 1 VIAL SQ SCH ×4 (06:19→21:11)
[2021-11-06 07:10] LABS: EOS % 2.2 % (0-4.5); HEMATOCRIT 28.9 % (35.4-49); HEMOGLOBIN 9.5 GM/dL (11.7-16.9); LYMPH % 20.3 % (8-40); MCH 29.3 pg (25.7-33.7); MEAN PLT VOLUME 7.9 fl (7.5-11.1); MONO % 6.3 % (3.8-10.2); NEUT % 69.2 % (42.8-82.8); PLATELET COUNT 226 10^3/uL (134-434); RBC 3.24 M/mm3 (4.00-5.60); RDW 15.1 % (11.9-15.9); WHITE BLOOD COUNT 7.3 K/mm3 (4.0-10.0)
[2021-11-06 07:24] LABS: CALCIUM 8.9 mg/dL (8.5-10.1)
[2021-11-06 07:25] LABS: ALBUMIN 2.5 g/dl (3.4-5.0); MAGNESIUM 2.6 mg/dL (1.8-2.4)
[2021-11-06 07:28] LABS: CREATININE 3.4 mg/dL (0.55-1.3)
[2021-11-06 07:30] LABS: BILIRUBIN,TOTAL 0.6 mg/dL (0.2-1); TOT PROT 6.3 g/dl (6.4-8.2)
[2021-11-06] MEDS: BACITRACIN 15 GM TUBE TOPICAL OINTMENT TP SCH (09:47)
[2021-11-06] MEDS: ASPIRIN 81 MG CHEWABLE TABLETS PO SCH (09:47)
[2021-11-06] MEDS: PSYLLIUM 5.85 GM PACKET PO SCH (09:48)
[2021-11-06] MEDS: ACETAMINOPHEN 325 MG TABLET (FP) PO PRN ×2 (09:48→19:42)
[2021-11-06] MEDS: CLOTRIMAZOLE 1% CREAM TP SCH ×2 (09:48→21:12)
[2021-11-06] MEDS: GABAPENTIN 300 MG CAPSULE PO SCH ×2 (09:48→21:12)
[2021-11-06] MEDS: PANTOPRAZOLE 40 MG TABLET PO SCH (09:48)
[2021-11-06] MEDS: CLOPIDOGREL BISULFATE 75 MG TABLET (FP) PO SCH (09:48)
[2021-11-06] MEDS: ATORVASTATIN CA 80 MG TABLET (FP) PO SCH (21:12)
[2021-11-06] MEDS: SENNOSIDES 8.6MG TABLET (FP) PO SCH (21:12)
[2021-11-07] MEDS: NITROGLYCERIN 2% OINTMENT - 1GM PACKET TD SCH ×3 (00:39→17:59)
[2021-11-07] MEDS: INSULIN (LEVEMIR) 100 UNITS/ML UNITS SQ SCH (06:04)
[2021-11-07] MEDS: INSULIN SLIDING SCALE (NOVOLOG) 1 VIAL SQ SCH ×4 (06:04→21:52)
[2021-11-07] MEDS: METOPROLOL TARTRATE 50 MG TABLET (FP) PO SCH ×3 (06:12→21:49)
[2021-11-07] MEDS: HEPARIN NA (PORCINE) 5,000 UNITS/ML 1ML VIAL SQ SCH ×3 (06:12→21:49)
[2021-11-07] MEDS: hydrALAZINE HCL 25 MG TABLET (FP) PO SCH ×3 (06:12→21:48)
[2021-11-07 06:50] LABS: BASO % 2.1 % (0-2.0); HEMATOCRIT 28.5 % (35.4-49); HEMOGLOBIN 9.4 GM/dL (11.7-16.9); LYMPH % 21.9 % (8-40); MCH 29.3 pg (25.7-33.7); MCHC 32.8 g/dl (32.0-35.9); MEAN CELL VOLUME 89.2 fl (80-96); MEAN PLT VOLUME 8.2 fl (7.5-11.1); MONO % 8.1 % (3.8-10.2); NEUT % 65.9 % (42.8-82.8); PLATELET COUNT 213 10^3/uL (134-434); RDW 14.9 % (11.9-15.9); WHITE BLOOD COUNT 6.1 K/mm3 (4.0-10.0)
[2021-11-07 07:53] LABS: ALBUMIN 2.7 g/dl (3.4-5.0); BLOOD UREA NITROGEN 59.1 mg/dL (7-18); CALCIUM 8.7 mg/dL (8.5-10.1); MAGNESIUM 2.5 mg/dL (1.8-2.4)
[2021-11-07 07:55] LABS: BILIRUBIN,TOTAL 0.4 mg/dL (0.2-1); PHOSPHOROUS 5.3 mg/dL (2.5-4.9); TOT PROT 6.2 g/dl (6.4-8.2)
[2021-11-07 07:56] LABS: CREATININE 3.2 mg/dL (0.55-1.3)
[2021-11-07] MEDS: ASPIRIN 81 MG CHEWABLE TABLETS PO SCH (09:48)
[2021-11-07] MEDS: CLOPIDOGREL BISULFATE 75 MG TABLET (FP) PO SCH (09:48)
[2021-11-07] MEDS: GABAPENTIN 300 MG CAPSULE PO SCH ×2 (09:48→21:49)
[2021-11-07] MEDS: PSYLLIUM 5.85 GM PACKET PO SCH (09:48)
[2021-11-07] MEDS: SENNOSIDES 8.6MG TABLET (FP) PO SCH ×2 (09:48→21:49)
[2021-11-07] MEDS: PANTOPRAZOLE 40 MG TABLET PO SCH (09:48)
[2021-11-07] MEDS: CLOTRIMAZOLE 1% CREAM TP SCH ×2 (09:49→21:53)
[2021-11-07] MEDS: BACITRACIN 15 GM TUBE TOPICAL OINTMENT TP SCH (09:49)
[2021-11-07] MEDS ORDERED: HEPARIN NA (PORCINE) 5,000 UNITS/ML 1ML VIAL ONE ×2 (11:11→12:37)
[2021-11-07] MEDS ORDERED: LIDOCAINE HCL 1%, 10 MG/ML (20ML VIAL) ONE (11:12)
[2021-11-07] MEDS ORDERED: PROMETHAZINE HCL 25 MG/1 ML VIAL IVPUSH PRN ×2 (11:53→13:05)
[2021-11-07] MEDS ORDERED: ONDANSETRON 4 MG/2 ML VIAL IVPUSH PRN ×2 (11:53→13:05)
[2021-11-07] MEDS ORDERED: PROPOFOL 20 ML ONE (11:58)
[2021-11-07] MEDS ORDERED: MIDAZOLAM HCL 2 MG/2 ML SINGLE DOSE VIAL ONE (11:59)
[2021-11-07] MEDS ORDERED: LIDOCAINE HCL/PF 2% SDV 5ML VIAL ONE (12:00)
[2021-11-07] MEDS ORDERED: SODIUM CHLORIDE 1,000 ML IV SCH (12:00)
[2021-11-07] MEDS ORDERED: SODIUM CHLORIDE 0.9% P/F 10 ML VIAL IJ ONE (12:01)
[2021-11-07] MEDS ORDERED: ceFAZolin SODIUM 1 GM VIAL ONE (12:01)
[2021-11-07] MEDS ORDERED: ceFAZolin SODIUM 1 GM VIAL IVPB ONE (12:14)
[2021-11-07] MEDS ORDERED: LIDOCAINE HCL 1%, 10 MG/ML (20ML VIAL) NR ONE ×2 (12:19)
[2021-11-07] MEDS ORDERED: hydrALAZINE HCL 20 MG/ML VIAL IVPUSH ONE ×2 (13:24→13:27)
[2021-11-07] MEDS: SODIUM CHLORIDE 1,000 ML IV SCH (15:26)
[2021-11-07] MEDS: ACETAMINOPHEN 325 MG TABLET (FP) PO PRN (17:59)
[2021-11-07] MEDS: ATORVASTATIN CA 80 MG TABLET (FP) PO SCH (21:49)
[2021-11-07] MEDS: MELATONIN 5 MG TABLETS PO PRN (21:49)
[2021-11-07] MEDS ORDERED: INSULIN (NOVOLOG) ASPART 100 UNITS/ML 10ML VIAL ONE (21:51)
[2021-11-08] MEDS: NITROGLYCERIN 2% OINTMENT - 1GM PACKET TD SCH ×5 (00:20→17:27)
[2021-11-08] MEDS: INSULIN (LEVEMIR) 100 UNITS/ML UNITS SQ SCH (06:08)
[2021-11-08] MEDS: HEPARIN NA (PORCINE) 5,000 UNITS/ML 1ML VIAL SQ SCH ×3 (06:08→21:10)
[2021-11-08] MEDS: hydrALAZINE HCL 25 MG TABLET (FP) PO SCH ×3 (06:09→21:10)
[2021-11-08] MEDS: METOPROLOL TARTRATE 50 MG TABLET (FP) PO SCH ×3 (06:09→21:14)
[2021-11-08] MEDS: INSULIN SLIDING SCALE (NOVOLOG) 1 VIAL SQ SCH ×4 (06:09→21:25)
[2021-11-08] MEDS ORDERED: LISINOPRIL 5 MG TABLET PO SCH (10:00)
[2021-11-08] MEDS: CLOPIDOGREL BISULFATE 75 MG TABLET (FP) PO SCH (10:03)
[2021-11-08] MEDS: SENNOSIDES 8.6MG TABLET (FP) PO SCH ×2 (10:03→21:10)
[2021-11-08] MEDS: GABAPENTIN 300 MG CAPSULE PO SCH ×2 (10:03→21:10)
[2021-11-08] MEDS: LISINOPRIL 5 MG TABLET PO SCH (10:03)
[2021-11-08] MEDS: PANTOPRAZOLE 40 MG TABLET PO SCH (10:03)
[2021-11-08] MEDS: ASPIRIN 81 MG CHEWABLE TABLETS PO SCH (10:03)
[2021-11-08] MEDS: PSYLLIUM 5.85 GM PACKET PO SCH (10:04)
[2021-11-08] MEDS: BACITRACIN 15 GM TUBE TOPICAL OINTMENT TP SCH (10:04)
[2021-11-08] MEDS: ACETAMINOPHEN 325 MG TABLET (FP) PO PRN ×2 (10:04→18:36)
[2021-11-08] MEDS: CLOTRIMAZOLE 1% CREAM TP SCH ×2 (10:09→21:26)
[2021-11-08] MEDS: SODIUM CHLORIDE 1,000 ML IV SCH (13:55)
[2021-11-08] MEDS ORDERED: DEXTROSE 5%-WATER - 50 ML IVPB ONE ×2 (15:33→21:00)
[2021-11-08] MEDS ORDERED: PIPERACILLIN/TAZOBACTAM 3.375 GM VIAL IVPB ONE ×2 (15:33→21:00)
[2021-11-08] MEDS: PIPERACILLIN/TAZOB 3.375 GM 3.375 GM in DEXTROSE 5%-WATER - 50 ML IVPB SCH ×2 (15:50→21:51)
[2021-11-08] MEDS: CALCIUM ACETATE 667 MG CAPSULE (FP) PO SCH (17:27)
[2021-11-08] MEDS: ATORVASTATIN CA 80 MG TABLET (FP) PO SCH (21:11)
[2021-11-08] MEDS: MELATONIN 5 MG TABLETS PO PRN (21:11)
[2021-11-09] MEDS ORDERED: DEXTROSE 5%-WATER - 50 ML IVPB ONE ×2 (00:57→08:00)
[2021-11-09] MEDS ORDERED: PIPERACILLIN/TAZOBACTAM 3.375 GM VIAL IVPB ONE ×2 (00:57→08:00)
[2021-11-09] MEDS: SODIUM CHLORIDE 1,000 ML IV SCH ×2 (02:07→13:45)
[2021-11-09] MEDS: PIPERACILLIN/TAZOB 3.375 GM 3.375 GM in DEXTROSE 5%-WATER - 50 ML IVPB SCH ×2 (02:11→09:34)
[2021-11-09] MEDS: NITROGLYCERIN 2% OINTMENT - 1GM PACKET TD SCH ×4 (02:11→17:11)
[2021-11-09] MEDS: ACETAMINOPHEN 325 MG TABLET (FP) PO PRN ×3 (02:12→21:33)
[2021-11-09] MEDS: INSULIN (LEVEMIR) 100 UNITS/ML UNITS SQ SCH (06:26)
[2021-11-09] MEDS: HEPARIN NA (PORCINE) 5,000 UNITS/ML 1ML VIAL SQ SCH ×3 (06:27→21:32)
[2021-11-09] MEDS: hydrALAZINE HCL 25 MG TABLET (FP) PO SCH ×3 (06:27→21:32)
[2021-11-09] MEDS: INSULIN SLIDING SCALE (NOVOLOG) 1 VIAL SQ SCH ×4 (06:27→21:31)
[2021-11-09] MEDS: METOPROLOL TARTRATE 50 MG TABLET (FP) PO SCH ×3 (06:27→21:32)
[2021-11-09 07:01] LABS: BASO % 3.1 % (0-2.0); HEMATOCRIT 28.6 % (35.4-49); HEMOGLOBIN 9.5 GM/dL (11.7-16.9); LYMPH % 16.9 % (8-40); MCH 29.4 pg (25.7-33.7); MCHC 33.1 g/dl (32.0-35.9); MEAN CELL VOLUME 88.8 fl (80-96); MEAN PLT VOLUME 8.1 fl (7.5-11.1); MONO % 7.4 % (3.8-10.2); NEUT % 70.6 % (42.8-82.8); PLATELET COUNT 234 10^3/uL (134-434); RBC 3.22 M/mm3 (4.00-5.60); RDW 14.6 % (11.9-15.9); WHITE BLOOD COUNT 6.5 K/mm3 (4.0-10.0)
[2021-11-09 07:22] LABS: CALCIUM 8.6 mg/dL (8.5-10.1)
[2021-11-09 07:23] LABS: ALBUMIN 2.6 g/dl (3.4-5.0); BLOOD UREA NITROGEN 57.5 mg/dL (7-18); MAGNESIUM 2.3 mg/dL (1.8-2.4)
[2021-11-09 07:26] LABS: CREATININE 3.2 mg/dL (0.55-1.3); PHOSPHOROUS 4.5 mg/dL (2.5-4.9)
[2021-11-09 07:27] LABS: BILIRUBIN,TOTAL 0.5 mg/dL (0.2-1)
[2021-11-09] MEDS: PSYLLIUM 5.85 GM PACKET PO SCH (09:35)
[2021-11-09] MEDS: LISINOPRIL 5 MG TABLET PO SCH (09:36)
[2021-11-09] MEDS: PANTOPRAZOLE 40 MG TABLET PO SCH (09:36)
[2021-11-09] MEDS: ASPIRIN 81 MG CHEWABLE TABLETS PO SCH (09:36)
[2021-11-09] MEDS: CLOPIDOGREL BISULFATE 75 MG TABLET (FP) PO SCH (09:36)
[2021-11-09] MEDS: CALCIUM ACETATE 667 MG CAPSULE (FP) PO SCH (09:36)
[2021-11-09] MEDS: GABAPENTIN 300 MG CAPSULE PO SCH ×2 (09:36→21:32)
[2021-11-09] MEDS: SENNOSIDES 8.6MG TABLET (FP) PO SCH ×2 (09:36→21:32)
[2021-11-09] MEDS: BACITRACIN 15 GM TUBE TOPICAL OINTMENT TP SCH (09:37)
[2021-11-09] MEDS: CLOTRIMAZOLE 1% CREAM TP SCH ×2 (09:37→22:00)
[2021-11-09] MEDS: ATORVASTATIN CA 80 MG TABLET (FP) PO SCH (21:32)
[2021-11-09] MEDS: MELATONIN 5 MG TABLETS PO PRN (21:34)
[2021-11-10] MEDS: NITROGLYCERIN 2% OINTMENT - 1GM PACKET TD SCH ×4 (00:11→18:14)
[2021-11-10] MEDS: METOPROLOL TARTRATE 50 MG TABLET (FP) PO SCH ×3 (05:49→22:22)
[2021-11-10] MEDS: HEPARIN NA (PORCINE) 5,000 UNITS/ML 1ML VIAL SQ SCH ×3 (05:49→22:22)
[2021-11-10] MEDS: hydrALAZINE HCL 25 MG TABLET (FP) PO SCH ×3 (05:49→22:22)
[2021-11-10] MEDS: INSULIN SLIDING SCALE (NOVOLOG) 1 VIAL SQ SCH ×5 (06:16→22:21)
[2021-11-10] MEDS: INSULIN (LEVEMIR) 100 UNITS/ML UNITS SQ SCH (06:16)
[2021-11-10] MEDS: CALCIUM ACETATE 667 MG CAPSULE (FP) PO SCH (09:27)
[2021-11-10] MEDS: SENNOSIDES 8.6MG TABLET (FP) PO SCH ×2 (09:27→22:21)
[2021-11-10] MEDS: LISINOPRIL 5 MG TABLET PO SCH (09:27)
[2021-11-10] MEDS: PANTOPRAZOLE 40 MG TABLET PO SCH (09:27)
[2021-11-10] MEDS: GABAPENTIN 300 MG CAPSULE PO SCH ×2 (09:27→22:22)
[2021-11-10] MEDS: ASPIRIN 81 MG CHEWABLE TABLETS PO SCH (09:27)
[2021-11-10] MEDS: CLOPIDOGREL BISULFATE 75 MG TABLET (FP) PO SCH (09:27)
[2021-11-10] MEDS: BACITRACIN 15 GM TUBE TOPICAL OINTMENT TP SCH (09:28)
[2021-11-10] MEDS: PSYLLIUM 5.85 GM PACKET PO SCH (09:28)
[2021-11-10] MEDS: CLOTRIMAZOLE 1% CREAM TP SCH ×2 (09:28→22:24)
[2021-11-10] MEDS ORDERED: ACETAMINOPHEN 500 MG TABLET (FP) PO ONE (11:01)
[2021-11-10] MEDS ORDERED: MELATONIN 5 MG TABLETS PO PRN (18:49)
[2021-11-10] MEDS: PIPERACILLIN/TAZOB 3.375 GM 3.375 GM in DEXTROSE 5%-WATER - 50 ML IVPB SCH (19:54)
[2021-11-10] MEDS: ACETAMINOPHEN 325 MG TABLET (FP) PO PRN (20:05)
[2021-11-10] MEDS ORDERED: oxyCODONE HCL 5 MG TABLET PO ONE (22:07)
[2021-11-10] MEDS: ATORVASTATIN CA 80 MG TABLET (FP) PO SCH (22:22)
[2021-11-11] MEDS: NITROGLYCERIN 2% OINTMENT - 1GM PACKET TD SCH ×5 (00:05→23:07)
[2021-11-11] MEDS: PIPERACILLIN/TAZOB 3.375 GM 3.375 GM in DEXTROSE 5%-WATER - 50 ML IVPB SCH ×6 (01:12→18:34)
[2021-11-11] MEDS: ACETAMINOPHEN 325 MG TABLET (FP) PO PRN (06:32)
[2021-11-11] MEDS: HEPARIN NA (PORCINE) 5,000 UNITS/ML 1ML VIAL SQ SCH ×4 (06:33→22:41)
[2021-11-11] MEDS: hydrALAZINE HCL 25 MG TABLET (FP) PO SCH ×3 (06:33→21:51)
[2021-11-11] MEDS: INSULIN (LEVEMIR) 100 UNITS/ML UNITS SQ SCH (06:33)
[2021-11-11] MEDS: METOPROLOL TARTRATE 50 MG TABLET (FP) PO SCH ×3 (06:33→21:51)
[2021-11-11] MEDS: INSULIN SLIDING SCALE (NOVOLOG) 1 VIAL SQ SCH ×4 (06:34→21:52)
[2021-11-11] MEDS: SODIUM CHLORIDE 1,000 ML IV SCH (08:48)
[2021-11-11] MEDS: SENNOSIDES 8.6MG TABLET (FP) PO SCH ×2 (11:05→21:51)
[2021-11-11] MEDS: CALCIUM ACETATE 667 MG CAPSULE (FP) PO SCH (11:07)
[2021-11-11] MEDS: LISINOPRIL 5 MG TABLET PO SCH (11:07)
[2021-11-11] MEDS: GABAPENTIN 300 MG CAPSULE PO SCH ×2 (11:07→21:50)
[2021-11-11] MEDS: ASPIRIN 81 MG CHEWABLE TABLETS PO SCH (11:07)
[2021-11-11] MEDS: PANTOPRAZOLE 40 MG TABLET PO SCH (11:07)
[2021-11-11] MEDS: PSYLLIUM 5.85 GM PACKET PO SCH (11:08)
[2021-11-11 12:05] LABS: HEMATOCRIT 30.5 % (35.4-49); MCH 29.3 pg (25.7-33.7); MCHC 32.8 g/dl (32.0-35.9); MEAN CELL VOLUME 89.3 fl (80-96); MEAN PLT VOLUME 7.9 fl (7.5-11.1); PLATELET COUNT 241 10^3/uL (134-434); RBC 3.41 M/mm3 (4.00-5.60); RDW 15.4 % (11.9-15.9); WHITE BLOOD COUNT 5.3 K/mm3 (4.0-10.0)
[2021-11-11 12:27] LABS: CALCIUM 8.8 mg/dL (8.5-10.1)
[2021-11-11 12:28] LABS: BLOOD UREA NITROGEN 45.9 mg/dL (7-18)
[2021-11-11] MEDS: BACITRACIN 15 GM TUBE TOPICAL OINTMENT TP SCH (16:24)
[2021-11-11] MEDS: CLOPIDOGREL BISULFATE 75 MG TABLET (FP) PO SCH (16:24)
[2021-11-11] MEDS: CLOTRIMAZOLE 1% CREAM TP SCH ×2 (16:25→21:50)
[2021-11-11] MEDS ORDERED: PIPERACILLIN/TAZOBACTAM 3.375 GM VIAL IVPB ONE (17:47)
[2021-11-11] MEDS ORDERED: DEXTROSE 5%-WATER - 50 ML IVPB ONE (17:47)
[2021-11-11] MEDS: ATORVASTATIN CA 80 MG TABLET (FP) PO SCH (21:51)
[2021-11-12] MEDS ORDERED: DEXTROSE 5%-WATER - 50 ML IVPB ONE ×3 (00:37→18:21)
[2021-11-12] MEDS ORDERED: PIPERACILLIN/TAZOBACTAM 3.375 GM VIAL IVPB ONE ×3 (00:37→18:20)
[2021-11-12] MEDS: PIPERACILLIN/TAZOB 3.375 GM 3.375 GM in DEXTROSE 5%-WATER - 50 ML IVPB SCH ×3 (02:04→18:28)
[2021-11-12] MEDS: HEPARIN NA (PORCINE) 5,000 UNITS/ML 1ML VIAL SQ SCH (06:00)
[2021-11-12] MEDS: hydrALAZINE HCL 25 MG TABLET (FP) PO SCH ×3 (06:07→21:56)
[2021-11-12] MEDS: NITROGLYCERIN 2% OINTMENT - 1GM PACKET TD SCH ×4 (06:07→23:06)
[2021-11-12] MEDS: METOPROLOL TARTRATE 50 MG TABLET (FP) PO SCH ×3 (06:07→21:56)
[2021-11-12] MEDS: INSULIN SLIDING SCALE (NOVOLOG) 1 VIAL SQ SCH ×4 (06:08→21:55)
[2021-11-12] MEDS: INSULIN (LEVEMIR) 100 UNITS/ML UNITS SQ SCH (06:08)
[2021-11-12 09:33] LABS: EOS % 1.7 % (0-4.5); HEMATOCRIT 29.7 % (35.4-49); HEMOGLOBIN 9.7 GM/dL (11.7-16.9); LYMPH % 21.8 % (8-40); MCHC 32.8 g/dl (32.0-35.9); MEAN CELL VOLUME 88.5 fl (80-96); MEAN PLT VOLUME 7.6 fl (7.5-11.1); MONO % 9.9 % (3.8-10.2); NEUT % 63.6 % (42.8-82.8); PLATELET COUNT 222 10^3/uL (134-434); RBC 3.36 M/mm3 (4.00-5.60); RDW 15.3 % (11.9-15.9); WHITE BLOOD COUNT 5.4 K/mm3 (4.0-10.0)
[2021-11-12 10:04] LABS: CALCIUM 8.5 mg/dL (8.5-10.1)
[2021-11-12 10:05] LABS: ALBUMIN 2.6 g/dl (3.4-5.0); BLOOD UREA NITROGEN 36.1 mg/dL (7-18)
[2021-11-12 10:07] LABS: CREATININE 2.8 mg/dL (0.55-1.3); PHOSPHOROUS 4.1 mg/dL (2.5-4.9)
[2021-11-12 10:09] LABS: BILIRUBIN,TOTAL 0.7 mg/dL (0.2-1); TOT PROT 6.3 g/dl (6.4-8.2)
[2021-11-12] MEDS: GABAPENTIN 300 MG CAPSULE PO SCH ×2 (10:53→21:57)
[2021-11-12] MEDS: PANTOPRAZOLE 40 MG TABLET PO SCH (10:54)
[2021-11-12] MEDS: CALCIUM ACETATE 667 MG CAPSULE (FP) PO SCH (10:54)
[2021-11-12] MEDS: SENNOSIDES 8.6MG TABLET (FP) PO SCH ×2 (10:54→21:57)
[2021-11-12] MEDS: ASPIRIN 81 MG CHEWABLE TABLETS PO SCH (10:54)
[2021-11-12] MEDS: LISINOPRIL 5 MG TABLET PO SCH (10:55)
[2021-11-12] MEDS: CLOPIDOGREL BISULFATE 75 MG TABLET (FP) PO SCH (10:55)
[2021-11-12] MEDS: PSYLLIUM 5.85 GM PACKET PO SCH (10:56)
[2021-11-12] MEDS: BACITRACIN 15 GM TUBE TOPICAL OINTMENT TP SCH (10:57)
[2021-11-12] MEDS: CLOTRIMAZOLE 1% CREAM TP SCH ×2 (10:57→21:57)
[2021-11-12] MEDS ORDERED: GENTAMICIN SO4 80 MG/2 ML VIAL ONE (14:33)
[2021-11-12] MEDS ORDERED: ONDANSETRON 4 MG/2 ML VIAL IVPUSH PRN ×2 (15:17→17:35)
[2021-11-12] MEDS ORDERED: SODIUM CHLORIDE 1,000 ML IV SCH (15:30)
[2021-11-12] MEDS ORDERED: DEXAMETHASONE SOD PHOSPHATE 4 MG/1 ML VIAL ONE (16:02)
[2021-11-12] MEDS ORDERED: LIDOCAINE HCL/PF 2% SDV 5ML VIAL ONE (16:02)
[2021-11-12] MEDS ORDERED: MIDAZOLAM HCL 2 MG/2 ML SINGLE DOSE VIAL ONE (16:02)
[2021-11-12] MEDS ORDERED: KETOROLAC TROMETHAMINE 30 MG/1 ML VIAL ONE (16:02)
[2021-11-12] MEDS ORDERED: PROPOFOL 20 ML ONE ×2 (16:02)
[2021-11-12] MEDS ORDERED: GLYCOPYRROLATE 0.2 MG/1 ML VIAL ONE (16:02)
[2021-11-12] MEDS ORDERED: LIDOCAINE HCL 2% (50ML VIAL) NR ONE (16:30)
[2021-11-12] MEDS ORDERED: MELATONIN 5 MG TABLETS PO PRN (17:35)
[2021-11-12] MEDS: SODIUM CHLORIDE 1,000 ML IV SCH (21:48)
[2021-11-12] MEDS: ATORVASTATIN CA 80 MG TABLET (FP) PO SCH (21:56)
[2021-11-13] MEDS ORDERED: DEXTROSE 5%-WATER - 50 ML IVPB ONE ×3 (01:21→18:47)
[2021-11-13] MEDS ORDERED: PIPERACILLIN/TAZOBACTAM 3.375 GM VIAL IVPB ONE ×3 (01:21→18:47)
[2021-11-13] MEDS: SODIUM CHLORIDE 1,000 ML IV SCH ×2 (01:51→22:06)
[2021-11-13] MEDS: PIPERACILLIN/TAZOB 3.375 GM 3.375 GM in DEXTROSE 5%-WATER - 50 ML IVPB SCH ×3 (01:51→18:48)
[2021-11-13] MEDS: hydrALAZINE HCL 25 MG TABLET (FP) PO SCH ×3 (06:12→22:05)
[2021-11-13] MEDS: INSULIN (LEVEMIR) 100 UNITS/ML UNITS SQ SCH (06:12)
[2021-11-13] MEDS: METOPROLOL TARTRATE 50 MG TABLET (FP) PO SCH ×3 (06:12→22:05)
[2021-11-13] MEDS: NITROGLYCERIN 2% OINTMENT - 1GM PACKET TD SCH ×3 (06:12→19:19)
[2021-11-13] MEDS: INSULIN SLIDING SCALE (NOVOLOG) 1 VIAL SQ SCH ×4 (06:13→22:04)
[2021-11-13] MEDS: CLOPIDOGREL BISULFATE 75 MG TABLET (FP) PO SCH (09:48)
[2021-11-13] MEDS: CALCIUM ACETATE 667 MG CAPSULE (FP) PO SCH (09:48)
[2021-11-13] MEDS: PANTOPRAZOLE 40 MG TABLET PO SCH (09:49)
[2021-11-13] MEDS: LISINOPRIL 5 MG TABLET PO SCH (09:49)
[2021-11-13] MEDS: GABAPENTIN 300 MG CAPSULE PO SCH ×2 (09:49→22:06)
[2021-11-13] MEDS: SENNOSIDES 8.6MG TABLET (FP) PO SCH ×2 (09:49→22:06)
[2021-11-13] MEDS: BACITRACIN 15 GM TUBE TOPICAL OINTMENT TP SCH (09:50)
[2021-11-13] MEDS: ASPIRIN 81 MG CHEWABLE TABLETS PO SCH (09:51)
[2021-11-13] MEDS: PSYLLIUM 5.85 GM PACKET PO SCH (09:52)
[2021-11-13] MEDS: CLOTRIMAZOLE 1% CREAM TP SCH ×2 (09:52→22:10)
[2021-11-13 11:21] LABS: HEMATOCRIT 30.5 % (35.4-49); MCH 28.8 pg (25.7-33.7); MCHC 32.8 g/dl (32.0-35.9); MEAN CELL VOLUME 87.8 fl (80-96); MEAN PLT VOLUME 7.4 fl (7.5-11.1); PLATELET COUNT 213 10^3/uL (134-434); RBC 3.48 M/mm3 (4.00-5.60); RDW 15.2 % (11.9-15.9)
[2021-11-13] MEDS: ACETAMINOPHEN 325 MG TABLET (FP) PO PRN ×2 (11:32→21:26)
[2021-11-13 11:36] LABS: BLOOD UREA NITROGEN 33.4 mg/dL (7-18); CALCIUM 8.4 mg/dL (8.5-10.1); MAGNESIUM 1.9 mg/dL (1.8-2.4)
[2021-11-13 11:40] LABS: CREATININE 2.9 mg/dL (0.55-1.3); PHOSPHOROUS 3.6 mg/dL (2.5-4.9)
[2021-11-13] MEDS: ATORVASTATIN CA 80 MG TABLET (FP) PO SCH (22:05)
[2021-11-14] MEDS ORDERED: PIPERACILLIN/TAZOBACTAM 3.375 GM VIAL IVPB ONE ×2 (02:26→09:33)
[2021-11-14] MEDS ORDERED: DEXTROSE 5%-WATER - 50 ML IVPB ONE ×2 (02:27→09:33)
[2021-11-14] MEDS: NITROGLYCERIN 2% OINTMENT - 1GM PACKET TD SCH ×4 (02:35→19:51)
[2021-11-14] MEDS: PIPERACILLIN/TAZOB 3.375 GM 3.375 GM in DEXTROSE 5%-WATER - 50 ML IVPB SCH ×2 (02:35→10:21)
[2021-11-14] MEDS: hydrALAZINE HCL 25 MG TABLET (FP) PO SCH ×3 (07:01→21:03)
[2021-11-14] MEDS: METOPROLOL TARTRATE 50 MG TABLET (FP) PO SCH ×3 (07:01→21:03)
[2021-11-14] MEDS: INSULIN SLIDING SCALE (NOVOLOG) 1 VIAL SQ SCH ×4 (07:13→21:14)
[2021-11-14] MEDS: INSULIN (LEVEMIR) 100 UNITS/ML UNITS SQ SCH (07:14)
[2021-11-14 09:50] LABS: HEMATOCRIT 29.3 % (35.4-49); HEMOGLOBIN 9.6 GM/dL (11.7-16.9); MCH 28.9 pg (25.7-33.7); MCHC 32.8 g/dl (32.0-35.9); MEAN PLT VOLUME 7.8 fl (7.5-11.1); PLATELET COUNT 196 10^3/uL (134-434); RBC 3.33 M/mm3 (4.00-5.60); RDW 15.4 % (11.9-15.9); WHITE BLOOD COUNT 6.6 K/mm3 (4.0-10.0)
[2021-11-14 10:16] LABS: BLOOD UREA NITROGEN 32.4 mg/dL (7-18); CALCIUM 8.5 mg/dL (8.5-10.1)
[2021-11-14 10:17] LABS: MAGNESIUM 1.9 mg/dL (1.8-2.4)
[2021-11-14 10:19] LABS: PHOSPHOROUS 3.6 mg/dL (2.5-4.9)
[2021-11-14 10:20] LABS: CREATININE 2.9 mg/dL (0.55-1.3)
[2021-11-14] MEDS: CLOPIDOGREL BISULFATE 75 MG TABLET (FP) PO SCH (10:20)
[2021-11-14] MEDS: GABAPENTIN 300 MG CAPSULE PO SCH ×2 (10:20→21:03)
[2021-11-14] MEDS: CALCIUM ACETATE 667 MG CAPSULE (FP) PO SCH (10:20)
[2021-11-14] MEDS: LISINOPRIL 5 MG TABLET PO SCH (10:20)
[2021-11-14] MEDS: ASPIRIN 81 MG CHEWABLE TABLETS PO SCH (10:21)
[2021-11-14] MEDS: SENNOSIDES 8.6MG TABLET (FP) PO SCH ×2 (10:21→21:04)
[2021-11-14] MEDS: PANTOPRAZOLE 40 MG TABLET PO SCH (10:21)
[2021-11-14] MEDS: PSYLLIUM 5.85 GM PACKET PO SCH (10:22)
[2021-11-14] MEDS: ACETAMINOPHEN 325 MG TABLET (FP) PO PRN (10:23)
[2021-11-14] MEDS: CLOTRIMAZOLE 1% CREAM TP SCH ×2 (13:05→23:10)
[2021-11-14] MEDS: BACITRACIN 15 GM TUBE TOPICAL OINTMENT TP SCH (13:05)
[2021-11-14] MEDS: SODIUM CHLORIDE 1,000 ML IV SCH ×2 (14:53→19:54)
[2021-11-14] MEDS: HEPARIN NA (PORCINE) 5,000 UNITS/ML 1ML VIAL SQ SCH ×2 (15:19→21:04)
[2021-11-14] MEDS: ATORVASTATIN CA 80 MG TABLET (FP) PO SCH (21:04)
[2021-11-15] MEDS: NITROGLYCERIN 2% OINTMENT - 1GM PACKET TD SCH ×3 (00:10→11:23)
[2021-11-15] MEDS: HEPARIN NA (PORCINE) 5,000 UNITS/ML 1ML VIAL SQ SCH ×2 (05:33→15:15)
[2021-11-15] MEDS: hydrALAZINE HCL 25 MG TABLET (FP) PO SCH ×2 (05:33→15:00)
[2021-11-15] MEDS: METOPROLOL TARTRATE 50 MG TABLET (FP) PO SCH ×2 (05:33→15:00)
[2021-11-15] MEDS: INSULIN SLIDING SCALE (NOVOLOG) 1 VIAL SQ SCH ×2 (06:11→11:21)
[2021-11-15] MEDS: INSULIN (LEVEMIR) 100 UNITS/ML UNITS SQ SCH (06:35)
[2021-11-15] MEDS: CALCIUM ACETATE 667 MG CAPSULE (FP) PO SCH (09:28)
[2021-11-15] MEDS: PANTOPRAZOLE 40 MG TABLET PO SCH (09:28)
[2021-11-15] MEDS: SENNOSIDES 8.6MG TABLET (FP) PO SCH (09:28)
[2021-11-15] MEDS: CLOPIDOGREL BISULFATE 75 MG TABLET (FP) PO SCH (09:28)
[2021-11-15] MEDS: LISINOPRIL 5 MG TABLET PO SCH (09:28)
[2021-11-15] MEDS: ASPIRIN 81 MG CHEWABLE TABLETS PO SCH (09:28)
[2021-11-15] MEDS: GABAPENTIN 300 MG CAPSULE PO SCH (09:29)
[2021-11-15] MEDS: BACITRACIN 15 GM TUBE TOPICAL OINTMENT TP SCH (11:18)
[2021-11-15] MEDS: CLOTRIMAZOLE 1% CREAM TP SCH (11:18)
[2021-11-15] MEDS: ACETAMINOPHEN 325 MG TABLET (FP) PO PRN (13:12)
[2021-11-15] MEDS: PSYLLIUM 5.85 GM PACKET PO SCH (15:16)
[2021-11-15 15:57] VITALS: BP 148/82; PULSE 80; TEMP 98.4
== END 2021-11-15 15:51 | disposition home or self-care (01) | DRG 710 ==
LOC: JER 10:58 → JERBED 13:00 → J4W 22:49 → J5S 11-10 19:04
PROVIDERS: ADMIT Internal Medicine; ATTEND Internal Medicine
PROC: B41FZZZ Fluoroscopy of Right Lower Extremity Arteries (ICD-10-PCS; 2021-11-07)
PROC: B41DZZZ Fluoroscopy of Aorta and Bilateral Lower Extremity Arteries (ICD-10-PCS; 2021-11-07)
PROC: 0Y6T0Z0 Detachment at Right 3rd Toe, Complete, Open Approach (ICD-10-PCS; principal; 2021-11-12 14:00)
DX: A41.9 Sepsis, unspecified organism (principal); I21.4 Non-ST elevation (NSTEMI) myocardial infarction; J69.0 Pneumonitis due to inhalation of food and vomit; N17.9 Acute kidney failure, unspecified; I50.23 Acute on chronic systolic (congestive) heart failure; E11.65 Type 2 diabetes mellitus with hyperglycemia; E11.621 Type 2 diabetes mellitus with foot ulcer; L97.519 Non-pressure chronic ulcer of other part of right foot with unspecified severity; Z95.1 Presence of aortocoronary bypass graft; I25.10 Atherosclerotic heart disease of native coronary artery without angina pectoris; E78.5 Hyperlipidemia, unspecified; J44.9 Chronic obstructive pulmonary disease, unspecified; E86.0 Dehydration; I25.5 Ischemic cardiomyopathy; I27.20 Pulmonary hypertension, unspecified; I47.2 Ventricular tachycardia; R65.20 Severe sepsis without septic shock; E11.22 Type 2 diabetes mellitus with diabetic chronic kidney disease; I13.0 Hypertensive heart and chronic kidney disease with heart failure and stage 1 through stage 4 chronic kidney disease, or unspecified chronic kidney disease; N18.9 Chronic kidney disease, unspecified; Z79.4 Long term (current) use of insulin; N28.1 Cyst of kidney, acquired; N40.0 Benign prostatic hyperplasia without lower urinary tract symptoms; E11.52 Type 2 diabetes mellitus with diabetic peripheral angiopathy with gangrene; I96 Gangrene, not elsewhere classified; R74.01 Elevation of levels of liver transaminase levels; B35.3 Tinea pedis; E11.40 Type 2 diabetes mellitus with diabetic neuropathy, unspecified; E87.2 Acidosis
CPT/HCPCS: 0241U-QW; 36415; 71045-TC-FY; 71250-TC; 73630-TC-RT-FY; 74176-TC; 76000-TC-FY; 76775-TC; 80048; 80053; 80061; 80076; 81003; 82010; 82272; 82570; 82803; 82962; 83036; 83516; 83520; 83690; 83735; 83880; 84100; 84155; 84156; 84165; 84300; 84443; 84484; 85025; 85027; 85651; 85730; 86038; 86225; 86256; 87040; 87070; 87075; 87077; 87086; 87205; 88304-TC; 88305-TC; 88311-TC; 93005; 93010; 93306-TC; 93922; 93925-TC; 94760; 99285-25; J1644

== ENCOUNTER 2021-11-17 14:17 | Emergency (ER) | payer OTHER ==
[2021-11-17 14:58] VITALS: BP 167/82; PULSE 99; TEMP 99.1; BMI 28.8
== END 2021-11-17 20:09 | disposition left against medical advice (07) ==
LOC: JER 14:17
DX: R05.9 Cough, unspecified (principal)
CPT/HCPCS: 71046-TC-FY; 99284-25

== ENCOUNTER 2022-02-02 00:36 | Inpatient (IN) | payer OTHER ==
[2022-02-02] MEDS ORDERED: PIPERACILLIN/TAZOB 3.375 GM 3.375 GM in DEXTROSE 5%-WATER - 50 ML IVPB ONE (01:43)
[2022-02-02] MEDS ORDERED: VANCOMYCIN 1 GM in D5W (PRE-DOCKED) 1,000 MG/250 ML IVPB ONE (01:44)
[2022-02-02 02:11] LABS: BASO % 1.6 % (0-2.0); EOS % 1.4 % (0-4.5); HEMATOCRIT 34.3 % (35.4-49); LYMPH % 26.4 % (8-40); MCH 25.3 pg (25.7-33.7); MCHC 32.2 g/dl (32.0-35.9); MEAN CELL VOLUME 78.5 fl (80-96); MEAN PLT VOLUME 7.8 fl (7.5-11.1); MONO % 9.3 % (3.8-10.2); NEUT % 61.3 % (42.8-82.8); PLATELET COUNT 168 10^3/uL (134-434); RBC 4.37 M/mm3 (4.00-5.60); RDW 18.2 % (11.9-15.9); WHITE BLOOD COUNT 6.1 K/mm3 (4.0-10.0)
[2022-02-02 02:13] LABS: INR 1.34 (0.83-1.09); PROTHROMBIN TIME (PATIENT) 15.4 SEC (9.7-13.0)
[2022-02-02 02:16] LABS: ACTIVATED PTT 31.2 SECONDS (25.2-36.5)
[2022-02-02] MEDS ORDERED: VANCOMYCIN/WATER FOR INJ (PEG) 1,000 MG/200 ML BAG IVPB ONE (02:17)
[2022-02-02 02:33] LABS: ALBUMIN 2.6 g/dl (3.4-5.0); BLOOD UREA NITROGEN 39.6 mg/dL (7-18)
[2022-02-02 02:35] LABS: CREATININE 3.2 mg/dL (0.55-1.3)
[2022-02-02 02:37] LABS: BILIRUBIN,TOTAL 0.5 mg/dL (0.2-1); TOT PROT 6.2 g/dl (6.4-8.2)
[2022-02-02 02:40] LABS: N-TERMINAL BNP 21670.1 pg/ml (5-125)
[2022-02-02] MEDS ORDERED: PIPERACILLIN/TAZOB 2.25 GM 2.25 GM in DEXTROSE 5%-WATER - 50 ML IVPB ONE (03:17)
[2022-02-02] MEDS ORDERED: PIPERACILLIN/TAZOB 2.25 GM 2.25 GM/50 ML BAG IVPB ONE ×2 (03:36→08:54)
[2022-02-02] MEDS ORDERED: HEPARIN NA (PORCINE) 5,000 UNITS/ML 1ML VIAL ONE (07:25)
[2022-02-02] MEDS ORDERED: hydrALAZINE HCL 25 MG TABLET (FP) ONE (07:25)
[2022-02-02] MEDS: HEPARIN NA (PORCINE) 5,000 UNITS/ML 1ML VIAL SQ SCH ×3 (07:38→21:26)
[2022-02-02] MEDS: INSULIN SLIDING SCALE (NOVOLOG) 1 VIAL SQ SCH ×3 (07:38→17:20)
[2022-02-02] MEDS: hydrALAZINE HCL 25 MG TABLET (FP) PO SCH ×4 (07:38→21:26)
[2022-02-02] MEDS ORDERED: GABAPENTIN 300 MG CAPSULE ONE (08:54)
[2022-02-02] MEDS ORDERED: ASPIRIN 81 MG CHEWABLE TABLETS ONE (08:54)
[2022-02-02] MEDS ORDERED: CLOPIDOGREL BISULFATE 75 MG TABLET (FP) ONE (08:54)
[2022-02-02] MEDS: PIPERACILLIN/TAZOB 2.25 GM 2.25 GM in DEXTROSE 5%-WATER - 50 ML IVPB SCH ×3 (09:03→21:25)
[2022-02-02] MEDS: ASPIRIN 81 MG CHEWABLE TABLETS PO SCH (09:03)
[2022-02-02] MEDS: CLOPIDOGREL BISULFATE 75 MG TABLET (FP) PO SCH (09:04)
[2022-02-02] MEDS: FUROSEMIDE 40 MG/4 ML INJECTABLE VIAL IVPUSH SCH (09:04)
[2022-02-02] MEDS: GABAPENTIN 300 MG CAPSULE PO SCH ×2 (09:04→21:26)
[2022-02-02] MEDS ORDERED: METOPROLOL TARTRATE 50 MG TABLET (FP) PO SCH (10:00)
[2022-02-02] MEDS ORDERED: PIPERACILLIN/TAZOBACTAM 2.25 GM VIAL IVPB ONE ×2 (14:09→20:32)
[2022-02-02] MEDS ORDERED: ACETAMINOPHEN 1000 MG/100 ML BAG IVPB ONE (20:14)
[2022-02-02] MEDS: ATORVASTATIN CA 40 MG TABLET (FP) PO SCH (21:28)
[2022-02-03] MEDS ORDERED: VANCOMYCIN 1 GM/200 ML PREMIX BAG IVPB SCH (02:00)
[2022-02-03] MEDS ORDERED: PIPERACILLIN/TAZOBACTAM 2.25 GM VIAL IVPB ONE (03:10)
[2022-02-03] MEDS: PIPERACILLIN/TAZOB 2.25 GM 2.25 GM in DEXTROSE 5%-WATER - 50 ML IVPB SCH (03:17)
[2022-02-03] MEDS: HEPARIN NA (PORCINE) 5,000 UNITS/ML 1ML VIAL SQ SCH ×3 (05:51→21:03)
[2022-02-03] MEDS: hydrALAZINE HCL 25 MG TABLET (FP) PO SCH ×3 (05:51→21:03)
[2022-02-03] MEDS: INSULIN SLIDING SCALE (NOVOLOG) 1 VIAL SQ SCH ×3 (06:18→17:06)
[2022-02-03 08:00] LABS: BASO % 1.7 % (0-2.0); EOS % 2.1 % (0-4.5); HEMATOCRIT 32.5 % (35.4-49); HEMOGLOBIN 10.4 GM/dL (11.7-16.9); LYMPH % 16.8 % (8-40); MCH 24.8 pg (25.7-33.7); MCHC 31.8 g/dl (32.0-35.9); MEAN CELL VOLUME 77.8 fl (80-96); MEAN PLT VOLUME 8.2 fl (7.5-11.1); MONO % 11.9 % (3.8-10.2); NEUT % 67.5 % (42.8-82.8); PLATELET COUNT 170 10^3/uL (134-434); RBC 4.18 M/mm3 (4.00-5.60); RDW 18.6 % (11.9-15.9); WHITE BLOOD COUNT 5.9 K/mm3 (4.0-10.0)
[2022-02-03 08:32] LABS: BLOOD UREA NITROGEN 40.6 mg/dL (7-18); CALCIUM 8.4 mg/dL (8.5-10.1)
[2022-02-03 08:36] LABS: PHOSPHOROUS 4.1 mg/dL (2.5-4.9)
[2022-02-03] MEDS ORDERED: PIPERACILLIN/TAZOB 2.25 GM 2.25 GM in DEXTROSE 5%-WATER - 50 ML IVPB SCH (09:00)
[2022-02-03] MEDS: FUROSEMIDE 40 MG/4 ML INJECTABLE VIAL IVPUSH SCH (09:39)
[2022-02-03] MEDS: CLOPIDOGREL BISULFATE 75 MG TABLET (FP) PO SCH (09:39)
[2022-02-03] MEDS: GABAPENTIN 300 MG CAPSULE PO SCH ×2 (09:39→21:03)
[2022-02-03] MEDS: ASPIRIN 81 MG CHEWABLE TABLETS PO SCH (09:39)
[2022-02-03] MEDS: LOSARTAN POTASSIUM 50 MG TABLET PO SCH (09:41)
[2022-02-03 12:24] VITALS: BMI 28.3
[2022-02-03 13:44] LABS: EPI CELLS 7 /uL (0-25.1); HYALINE CASTS 1 /uL (0-3.1); URINE APPEARANCE CLEAR; URINE BACTERIA 18 /uL (0-1359); URINE BILIRUBIN NEGATIVE (NEGATIVE); URINE COLOR YELLOW; URINE GLUCOSE (UA) TRACE (NEGATIVE); URINE KETONE NEGATIVE (NEGATIVE); URINE LEUK ESTERASE NEGATIVE (NEGATIVE); URINE NITRITE NEGATIVE (NEGATIVE); URINE PROTEIN 3+ (NEGATIVE); URINE RBC 31 /uL (0-23.9); URINE UROBILINOGEN 0.2 mg/dL (0.2-1.0); URINE WBC 6 /uL (0-25.8)
[2022-02-03] MEDS: ATORVASTATIN CA 40 MG TABLET (FP) PO SCH (21:02)
[2022-02-04] MEDS ORDERED: VANCOMYCIN 1 GM/200 ML PREMIX BAG IVPB SCH (02:00)
[2022-02-04] MEDS: hydrALAZINE HCL 25 MG TABLET (FP) PO SCH ×3 (06:16→21:14)
[2022-02-04] MEDS: HEPARIN NA (PORCINE) 5,000 UNITS/ML 1ML VIAL SQ SCH ×3 (06:16→21:14)
[2022-02-04] MEDS: INSULIN SLIDING SCALE (NOVOLOG) 1 VIAL SQ SCH ×3 (06:32→17:35)
[2022-02-04 09:05] LABS: BASO % 2.6 % (0-2.0); EOS % 2.4 % (0-4.5); HEMATOCRIT 35.1 % (35.4-49); HEMOGLOBIN 11.1 GM/dL (11.7-16.9); LYMPH % 18.3 % (8-40); MCH 24.6 pg (25.7-33.7); MCHC 31.7 g/dl (32.0-35.9); MEAN CELL VOLUME 77.6 fl (80-96); MEAN PLT VOLUME 8.2 fl (7.5-11.1); MONO % 8.7 % (3.8-10.2); PLATELET COUNT 194 10^3/uL (134-434); RBC 4.53 M/mm3 (4.00-5.60); RDW 18.3 % (11.9-15.9); WHITE BLOOD COUNT 6.9 K/mm3 (4.0-10.0)
[2022-02-04 09:23] LABS: CALCIUM 8.4 mg/dL (8.5-10.1)
[2022-02-04 09:24] LABS: ALBUMIN 2.6 g/dl (3.4-5.0); BLOOD UREA NITROGEN 40.5 mg/dL (7-18)
[2022-02-04 09:27] LABS: PHOSPHOROUS 4.1 mg/dL (2.5-4.9)
[2022-02-04 09:28] LABS: BILIRUBIN,TOTAL 0.8 mg/dL (0.2-1); TOT PROT 6.2 g/dl (6.4-8.2)
[2022-02-04] MEDS: GABAPENTIN 300 MG CAPSULE PO SCH ×2 (09:40→21:14)
[2022-02-04] MEDS: FUROSEMIDE 40 MG/4 ML INJECTABLE VIAL IVPUSH SCH (09:40)
[2022-02-04] MEDS: CLOPIDOGREL BISULFATE 75 MG TABLET (FP) PO SCH (09:40)
[2022-02-04] MEDS: ASPIRIN 81 MG CHEWABLE TABLETS PO SCH (09:40)
[2022-02-04] MEDS: LOSARTAN POTASSIUM 50 MG TABLET PO SCH (09:40)
[2022-02-04] MEDS: ATORVASTATIN CA 40 MG TABLET (FP) PO SCH (21:14)
[2022-02-05] MEDS: HEPARIN NA (PORCINE) 5,000 UNITS/ML 1ML VIAL SQ SCH ×3 (05:39→21:26)
[2022-02-05] MEDS: hydrALAZINE HCL 25 MG TABLET (FP) PO SCH ×3 (05:39→21:25)
[2022-02-05] MEDS: INSULIN SLIDING SCALE (NOVOLOG) 1 VIAL SQ SCH ×3 (06:14→16:30)
[2022-02-05] MEDS: LOSARTAN POTASSIUM 50 MG TABLET PO SCH (09:09)
[2022-02-05] MEDS: GABAPENTIN 300 MG CAPSULE PO SCH ×2 (09:09→21:25)
[2022-02-05] MEDS: FUROSEMIDE 40 MG/4 ML INJECTABLE VIAL IVPUSH SCH ×2 (09:09→14:03)
[2022-02-05] MEDS: ATORVASTATIN CA 40 MG TABLET (FP) PO SCH (21:25)
[2022-02-06] MEDS: HEPARIN NA (PORCINE) 5,000 UNITS/ML 1ML VIAL SQ SCH ×3 (06:24→21:22)
[2022-02-06] MEDS: FUROSEMIDE 40 MG/4 ML INJECTABLE VIAL IVPUSH SCH ×2 (06:24→14:39)
[2022-02-06] MEDS: hydrALAZINE HCL 25 MG TABLET (FP) PO SCH ×3 (06:24→21:22)
[2022-02-06] MEDS: INSULIN SLIDING SCALE (NOVOLOG) 1 VIAL SQ SCH ×3 (06:35→16:50)
[2022-02-06 07:49] LABS: BASO % 2.2 % (0-2.0); EOS % 2.2 % (0-4.5); HEMATOCRIT 31.1 % (35.4-49); HEMOGLOBIN 9.8 GM/dL (11.7-16.9); LYMPH % 20.5 % (8-40); MCH 24.1 pg (25.7-33.7); MCHC 31.5 g/dl (32.0-35.9); MEAN CELL VOLUME 76.5 fl (80-96); MEAN PLT VOLUME 7.9 fl (7.5-11.1); MONO % 10.4 % (3.8-10.2); NEUT % 64.7 % (42.8-82.8); PLATELET COUNT 197 10^3/uL (134-434); RBC 4.06 M/mm3 (4.00-5.60); RDW 18.7 % (11.9-15.9); WHITE BLOOD COUNT 6.2 K/mm3 (4.0-10.0)
[2022-02-06 08:07] LABS: CALCIUM 8.1 mg/dL (8.5-10.1)
[2022-02-06 08:08] LABS: ALBUMIN 2.3 g/dl (3.4-5.0); BLOOD UREA NITROGEN 42.9 mg/dL (7-18); MAGNESIUM 2.1 mg/dL (1.8-2.4)
[2022-02-06 08:11] LABS: CREATININE 2.7 mg/dL (0.55-1.3); PHOSPHOROUS 3.9 mg/dL (2.5-4.9)
[2022-02-06 08:12] LABS: BILIRUBIN,TOTAL 0.6 mg/dL (0.2-1); TOT PROT 5.5 g/dl (6.4-8.2)
[2022-02-06] MEDS: GABAPENTIN 300 MG CAPSULE PO SCH ×2 (09:44→21:22)
[2022-02-06] MEDS: LOSARTAN POTASSIUM 50 MG TABLET PO SCH (09:44)
[2022-02-06] MEDS: ATORVASTATIN CA 40 MG TABLET (FP) PO SCH (21:22)
[2022-02-07] MEDS: HEPARIN NA (PORCINE) 5,000 UNITS/ML 1ML VIAL SQ SCH ×2 (06:29→13:29)
[2022-02-07] MEDS: hydrALAZINE HCL 25 MG TABLET (FP) PO SCH ×2 (06:29→13:29)
[2022-02-07] MEDS: FUROSEMIDE 40 MG/4 ML INJECTABLE VIAL IVPUSH SCH ×2 (06:29→13:29)
[2022-02-07] MEDS: INSULIN SLIDING SCALE (NOVOLOG) 1 VIAL SQ SCH ×2 (06:52→11:33)
[2022-02-07 09:35] VITALS: BP 123/75; PULSE 85; RESP 16; TEMP 97.6
[2022-02-07] MEDS: GABAPENTIN 300 MG CAPSULE PO SCH (10:09)
[2022-02-07] MEDS: LOSARTAN POTASSIUM 50 MG TABLET PO SCH (10:09)
[2022-02-07] MEDS ORDERED: FUROSEMIDE 40 MG TABLET (FP) PO ONE (14:00)
== END 2022-02-07 15:17 | disposition home or self-care (01) | DRG 194 ==
LOC: JER 00:36 → JERBED 04:19 → J4W 12:47
PROVIDERS: ADMIT Internal Medicine; ATTEND Internal Medicine
DX: I13.0 Hypertensive heart and chronic kidney disease with heart failure and stage 1 through stage 4 chronic kidney disease, or unspecified chronic kidney disease (principal); I50.23 Acute on chronic systolic (congestive) heart failure; E11.40 Type 2 diabetes mellitus with diabetic neuropathy, unspecified; E11.22 Type 2 diabetes mellitus with diabetic chronic kidney disease; N28.1 Cyst of kidney, acquired; N40.0 Benign prostatic hyperplasia without lower urinary tract symptoms; Z95.1 Presence of aortocoronary bypass graft; I25.10 Atherosclerotic heart disease of native coronary artery without angina pectoris; J44.9 Chronic obstructive pulmonary disease, unspecified; Z79.84 Long term (current) use of oral hypoglycemic drugs; N18.9 Chronic kidney disease, unspecified; D50.9 Iron deficiency anemia, unspecified; I25.5 Ischemic cardiomyopathy; I87.8 Other specified disorders of veins; I25.2 Old myocardial infarction
CPT/HCPCS: 0241U-QW; 36415; 71045-TC-FY; 73610-TC-LT-FY; 73630-TC-LT; 80048; 80053; 81003; 82570; 82728; 82962; 83550; 83615; 83735; 83880; 84100; 84156; 84484; 85025; 85610; 85730; 93005; 93010; 97116-GP; 97162-GP; 99285-25; C9803-CS; J1644; U0003; U0005

== ENCOUNTER 2022-02-25 06:00 | Day surgery (SDC) | payer OTHER ==
[2022-02-25 09:26] VITALS: BMI 26.4
[2022-02-25] MEDS ORDERED: MIDAZOLAM HCL 2 MG/2 ML SINGLE DOSE VIAL ONE (09:35)
[2022-02-25] MEDS ORDERED: SODIUM CHLORIDE 500 ML IV ONE (11:00)
[2022-02-25] MEDS ORDERED: SODIUM CHLORIDE 500 ML IV SCH (11:00)
[2022-02-25] MEDS ORDERED: MIDAZOLAM HCL 2 MG/2 ML SINGLE DOSE VIAL IVPUSH SCH (11:05)
[2022-02-25] MEDS: MIDAZOLAM HCL 2 MG/2 ML SINGLE DOSE VIAL IVPUSH SCH ×2 (11:05→11:17)
[2022-02-25 14:31] VITALS: BP 164/97; PULSE 83; RESP 18; TEMP 97.2
== END 2022-02-25 14:33 | disposition home or self-care (01) ==
LOC: JRADIR 06:00
PROVIDERS: ATTEND Internal Medicine
PROC: 0TB13ZX Excision of Left Kidney, Percutaneous Approach, Diagnostic (ICD-10-PCS; principal; 2022-02-25)
PROC: BT22ZZZ Computerized Tomography (CT Scan) of Left Kidney (ICD-10-PCS; 2022-02-25)
DX: I12.9 Hypertensive chronic kidney disease with stage 1 through stage 4 chronic kidney disease, or unspecified chronic kidney disease (principal); E11.21 Type 2 diabetes mellitus with diabetic nephropathy; E11.22 Type 2 diabetes mellitus with diabetic chronic kidney disease; N18.9 Chronic kidney disease, unspecified
CPT/HCPCS: 50200; 76942-TC; 88300-TC; 88329

== ENCOUNTER 2022-11-04 10:19 | Inpatient (IN) | payer OTHER ==
[2022-11-04 12:37] LABS: BASO % 1.3 % (0-2.0); EOS % 2.7 % (0-4.5); HEMATOCRIT 32.4 % (35.4-49); HEMOGLOBIN 10.4 GM/dL (11.7-16.9); LYMPH % 14.4 % (8-40); MCH 26.3 pg (25.7-33.7); MEAN CELL VOLUME 82.1 fl (80-96); MEAN PLT VOLUME 8.2 fl (7.5-11.1); MONO % 8.8 % (3.8-10.2); NEUT % 72.8 % (42.8-82.8); PLATELET COUNT 140 10^3/uL (134-434); RBC 3.94 M/mm3 (4.00-5.60); RDW 17.5 % (11.9-15.9); WHITE BLOOD COUNT 5.4 K/mm3 (4.0-10.0)
[2022-11-04 12:46] LABS: INR 1.29 (0.83-1.09); PROTHROMBIN TIME (PATIENT) 14.9 SEC (9.7-13.0)
[2022-11-04 12:49] LABS: ACTIVATED PTT 30.5 SECONDS (25.2-36.5)
[2022-11-04 13:11] LABS: EPI CELLS >36 /uL (0-25.1); HYALINE CASTS 1 /uL (0-3.1); PH,URINE 6.5 (5.0-8.0); URINE APPEARANCE CLEAR; URINE BACTERIA 73 /uL (0-1359); URINE BILIRUBIN NEGATIVE (NEGATIVE); URINE COLOR YELLOW; URINE GLUCOSE (UA) 3+ (NEGATIVE); URINE KETONE NEGATIVE (NEGATIVE); URINE LEUK ESTERASE 1+ (NEGATIVE); URINE NITRITE NEGATIVE (NEGATIVE); URINE PROTEIN 4+ (NEGATIVE); URINE RBC 48 /uL (0-23.9); URINE UROBILINOGEN 0.2 mg/dL (0.2-1.0); URINE WBC 435 /uL (0-25.8)
[2022-11-04 13:26] LABS: POTASSIUM 3.6 mmol/L (3.5-5.1)
[2022-11-04] MEDS ORDERED: FUROSEMIDE 40 MG/4 ML INJECTABLE VIAL IVPUSH ONE (13:28)
[2022-11-04 13:29] LABS: ALBUMIN 2.4 g/dl (3.4-5.0); CALCIUM 8.1 mg/dL (8.5-10.1); MAGNESIUM 2.2 mg/dL (1.8-2.4)
[2022-11-04 13:32] LABS: PHOSPHOROUS 4.6 mg/dL (2.5-4.9)
[2022-11-04 13:33] LABS: BILIRUBIN,TOTAL 0.4 mg/dL (0.2-1)
[2022-11-04 13:34] LABS: TOT PROT 5.9 g/dl (6.4-8.2)
[2022-11-04] MEDS ORDERED: FUROSEMIDE 40 MG/4 ML INJECTABLE VIAL ONE (13:34)
[2022-11-04] MEDS ORDERED: POTASSIUM CHLORIDE ORAL LIQUID 20 MEQ/15 ML PO ONE (15:04)
[2022-11-04] MEDS ORDERED: POTASSIUM CHLORIDE ORAL LIQUID 20 MEQ/15 ML ONE (15:08)
[2022-11-04] MEDS ORDERED: ATORVASTATIN CA 40 MG TABLET (FP) PO SCH (22:00)
[2022-11-04] MEDS: INSULIN SLIDING SCALE (NOVOLOG) 1 VIAL SQ SCH ×2 (22:05)
[2022-11-04] MEDS: CLOPIDOGREL BISULFATE 75 MG TABLET (FP) PO SCH (22:06)
[2022-11-04] MEDS: HEPARIN NA (PORCINE) 5,000 UNITS/ML 1ML VIAL SQ SCH (22:07)
[2022-11-05] MEDS: INSULIN SLIDING SCALE (NOVOLOG) 1 VIAL SQ SCH ×4 (06:46→22:59)
[2022-11-05] MEDS: FUROSEMIDE 40 MG/4 ML INJECTABLE VIAL IVPUSH SCH ×2 (06:46→13:46)
[2022-11-05 08:45] LABS: BASO % 1.4 % (0-2.0); EOS % 2.2 % (0-4.5); HEMATOCRIT 34.5 % (35.4-49); HEMOGLOBIN 11.1 GM/dL (11.7-16.9); LYMPH % 17.7 % (8-40); MCH 26.7 pg (25.7-33.7); MCHC 32.2 g/dl (32.0-35.9); MEAN CELL VOLUME 83.1 fl (80-96); MEAN PLT VOLUME 8.6 fl (7.5-11.1); MONO % 7.4 % (3.8-10.2); NEUT % 71.3 % (42.8-82.8); PLATELET COUNT 168 10^3/uL (134-434); RBC 4.16 M/mm3 (4.00-5.60); RDW 17.6 % (11.9-15.9); WHITE BLOOD COUNT 5.7 K/mm3 (4.0-10.0)
[2022-11-05 08:59] LABS: CALCIUM 9.2 mg/dL (8.5-10.1)
[2022-11-05 09:00] LABS: ALBUMIN 2.7 g/dl (3.4-5.0); BLOOD UREA NITROGEN 52.5 mg/dL (7-18); MAGNESIUM 2.3 mg/dL (1.8-2.4)
[2022-11-05 09:03] LABS: CREATININE 3.9 mg/dL (0.55-1.3); PHOSPHOROUS 4.6 mg/dL (2.5-4.9)
[2022-11-05 09:04] LABS: BILIRUBIN,TOTAL 0.7 mg/dL (0.2-1)
[2022-11-05 09:05] LABS: TOT PROT 6.7 g/dl (6.4-8.2)
[2022-11-05] MEDS ORDERED: BICALUTAMIDE 50 MG TABLET (FP) PO SCH (10:00)
[2022-11-05] MEDS: HEPARIN NA (PORCINE) 5,000 UNITS/ML 1ML VIAL SQ SCH ×2 (10:49→22:51)
[2022-11-05] MEDS: CLOPIDOGREL BISULFATE 75 MG TABLET (FP) PO SCH (10:50)
[2022-11-05] MEDS: GABAPENTIN 300 MG CAPSULE PO SCH ×2 (13:46→22:50)
[2022-11-05] MEDS: ATORVASTATIN CA 40 MG TABLET (FP) PO SCH (22:50)
[2022-11-05] MEDS ORDERED: INSULIN (NOVOLOG) ASPART 100 UNITS/ML 10ML VIAL ONE (22:56)
[2022-11-06] MEDS: FUROSEMIDE 40 MG/4 ML INJECTABLE VIAL IVPUSH SCH ×2 (06:20→13:04)
[2022-11-06] MEDS: INSULIN SLIDING SCALE (NOVOLOG) 1 VIAL SQ SCH ×4 (06:28→21:56)
[2022-11-06 08:25] LABS: BASO % 2.1 % (0-2.0); EOS % 3.3 % (0-4.5); HEMOGLOBIN 10.9 GM/dL (11.7-16.9); LYMPH % 22.5 % (8-40); MCH 25.8 pg (25.7-33.7); MCHC 31.1 g/dl (32.0-35.9); MEAN CELL VOLUME 83.1 fl (80-96); MEAN PLT VOLUME 8.5 fl (7.5-11.1); NEUT % 64.1 % (42.8-82.8); PLATELET COUNT 176 10^3/uL (134-434); RBC 4.21 M/mm3 (4.00-5.60); RDW 17.2 % (11.9-15.9); WHITE BLOOD COUNT 5.9 K/mm3 (4.0-10.0)
[2022-11-06 08:38] LABS: POTASSIUM 3.6 mmol/L (3.5-5.1)
[2022-11-06 08:41] LABS: BLOOD UREA NITROGEN 56.7 mg/dL (7-18); CALCIUM 8.7 mg/dL (8.5-10.1)
[2022-11-06 08:42] LABS: ALBUMIN 2.5 g/dl (3.4-5.0)
[2022-11-06 08:45] LABS: CREATININE 3.8 mg/dL (0.55-1.3)
[2022-11-06 08:46] LABS: BILIRUBIN,TOTAL 0.7 mg/dL (0.2-1); TOT PROT 6.1 g/dl (6.4-8.2)
[2022-11-06] MEDS: GABAPENTIN 300 MG CAPSULE PO SCH ×2 (09:11→21:36)
[2022-11-06] MEDS: HEPARIN NA (PORCINE) 5,000 UNITS/ML 1ML VIAL SQ SCH ×2 (09:11→21:37)
[2022-11-06] MEDS: BICALUTAMIDE 50 MG TABLET (FP) PO SCH (09:13)
[2022-11-06] MEDS: CLOPIDOGREL BISULFATE 75 MG TABLET (FP) PO SCH (09:13)
[2022-11-06] MEDS ORDERED: INSULIN (NOVOLOG) ASPART 100 UNITS/ML 10ML VIAL ONE (16:02)
[2022-11-06] MEDS: ATORVASTATIN CA 40 MG TABLET (FP) PO SCH (21:37)
[2022-11-07] MEDS: FUROSEMIDE 40 MG/4 ML INJECTABLE VIAL IVPUSH SCH ×2 (06:14→14:11)
[2022-11-07] MEDS: INSULIN SLIDING SCALE (NOVOLOG) 1 VIAL SQ SCH ×4 (06:19→22:27)
[2022-11-07 07:17] LABS: BASO % 1.9 % (0-2.0); EOS % 3.1 % (0-4.5); HEMATOCRIT 34.1 % (35.4-49); HEMOGLOBIN 10.7 GM/dL (11.7-16.9); LYMPH % 20.1 % (8-40); MCH 26.2 pg (25.7-33.7); MCHC 31.3 g/dl (32.0-35.9); MEAN CELL VOLUME 83.7 fl (80-96); MEAN PLT VOLUME 8.4 fl (7.5-11.1); MONO % 7.5 % (3.8-10.2); NEUT % 67.4 % (42.8-82.8); PLATELET COUNT 175 10^3/uL (134-434); RBC 4.08 M/mm3 (4.00-5.60); RDW 17.3 % (11.9-15.9); WHITE BLOOD COUNT 5.7 K/mm3 (4.0-10.0)
[2022-11-07 07:39] LABS: POTASSIUM 3.5 mmol/L (3.5-5.1)
[2022-11-07 07:42] LABS: ALBUMIN 2.7 g/dl (3.4-5.0); CALCIUM 8.8 mg/dL (8.5-10.1)
[2022-11-07 07:47] LABS: BILIRUBIN,TOTAL 0.7 mg/dL (0.2-1); TOT PROT 6.3 g/dl (6.4-8.2)
[2022-11-07] MEDS: HEPARIN NA (PORCINE) 5,000 UNITS/ML 1ML VIAL SQ SCH ×2 (09:30→22:26)
[2022-11-07] MEDS: CLOPIDOGREL BISULFATE 75 MG TABLET (FP) PO SCH (09:30)
[2022-11-07] MEDS: GABAPENTIN 300 MG CAPSULE PO SCH ×2 (09:30→22:27)
[2022-11-07] MEDS: BICALUTAMIDE 50 MG TABLET (FP) PO SCH (09:30)
[2022-11-07] MEDS ORDERED: amLODIPine BESYLATE 10 MG TABLET (FP) PO SCH (10:15)
[2022-11-07] MEDS: hydrALAZINE HCL 25 MG TABLET (FP) PO SCH ×2 (11:38→22:26)
[2022-11-07] MEDS ORDERED: POTASSIUM CHLORIDE ORAL LIQUID 20 MEQ/15 ML PO ONE (13:00)
[2022-11-07] MEDS: ATORVASTATIN CA 40 MG TABLET (FP) PO SCH (22:27)
[2022-11-08] MEDS: FUROSEMIDE 40 MG/4 ML INJECTABLE VIAL IVPUSH SCH (06:03)
[2022-11-08] MEDS: INSULIN SLIDING SCALE (NOVOLOG) 1 VIAL SQ SCH ×4 (06:03→22:00)
[2022-11-08] MEDS: hydrALAZINE HCL 50 MG TABLET (FP) PO SCH ×3 (08:30→21:56)
[2022-11-08] MEDS ORDERED: ISOSORBIDE DINITRATE 5 MG TABLET PO SCH (09:00)
[2022-11-08] MEDS: HEPARIN NA (PORCINE) 5,000 UNITS/ML 1ML VIAL SQ SCH ×2 (09:34→21:57)
[2022-11-08] MEDS: CLOPIDOGREL BISULFATE 75 MG TABLET (FP) PO SCH (09:35)
[2022-11-08] MEDS: GABAPENTIN 300 MG CAPSULE PO SCH ×2 (09:35→21:56)
[2022-11-08] MEDS: ISOSORBIDE DINITRATE 5 MG TABLET PO SCH ×2 (09:35→12:17)
[2022-11-08] MEDS: BICALUTAMIDE 50 MG TABLET (FP) PO SCH (09:40)
[2022-11-08 12:07] LABS: BASO % 1.7 % (0-2.0); EOS % 2.5 % (0-4.5); HEMOGLOBIN 11.1 GM/dL (11.7-16.9); LYMPH % 15.5 % (8-40); MCH 26.3 pg (25.7-33.7); MCHC 31.7 g/dl (32.0-35.9); MEAN CELL VOLUME 82.9 fl (80-96); MEAN PLT VOLUME 8.3 fl (7.5-11.1); MONO % 7.7 % (3.8-10.2); NEUT % 72.6 % (42.8-82.8); PLATELET COUNT 182 10^3/uL (134-434); RBC 4.22 M/mm3 (4.00-5.60); RDW 17.3 % (11.9-15.9); WHITE BLOOD COUNT 6.1 K/mm3 (4.0-10.0)
[2022-11-08 12:28] LABS: POTASSIUM 4.1 mmol/L (3.5-5.1)
[2022-11-08 12:30] LABS: BLOOD UREA NITROGEN 69.1 mg/dL (7-18); CALCIUM 9.3 mg/dL (8.5-10.1)
[2022-11-08 12:32] LABS: ALBUMIN 2.6 g/dl (3.4-5.0)
[2022-11-08 12:35] LABS: BILIRUBIN,TOTAL 0.6 mg/dL (0.2-1); CREATININE 4.2 mg/dL (0.55-1.3); TOT PROT 6.5 g/dl (6.4-8.2)
[2022-11-08] MEDS ORDERED: INSULIN (NOVOLOG) ASPART 100 UNITS/ML 10ML VIAL ONE ×2 (17:36→21:58)
[2022-11-08] MEDS ORDERED: ACETAMINOPHEN 325 MG TABLET (FP) PO ONE (19:15)
[2022-11-08] MEDS: ATORVASTATIN CA 40 MG TABLET (FP) PO SCH (21:56)
[2022-11-09] MEDS: INSULIN SLIDING SCALE (NOVOLOG) 1 VIAL SQ SCH ×4 (06:12→21:59)
[2022-11-09 08:14] LABS: BASO % 1.5 % (0-2.0); EOS % 3.2 % (0-4.5); HEMATOCRIT 30.5 % (35.4-49); HEMOGLOBIN 9.8 GM/dL (11.7-16.9); MCH 26.4 pg (25.7-33.7); MCHC 32.2 g/dl (32.0-35.9); MEAN CELL VOLUME 81.9 fl (80-96); MEAN PLT VOLUME 8.3 fl (7.5-11.1); MONO % 8.8 % (3.8-10.2); NEUT % 70.5 % (42.8-82.8); PLATELET COUNT 158 10^3/uL (134-434); RBC 3.73 M/mm3 (4.00-5.60); RDW 17.5 % (11.9-15.9)
[2022-11-09 08:35] LABS: ALBUMIN 2.4 g/dl (3.4-5.0); BLOOD UREA NITROGEN 76.4 mg/dL (7-18); CALCIUM 8.6 mg/dL (8.5-10.1)
[2022-11-09 08:39] LABS: BILIRUBIN,TOTAL 0.4 mg/dL (0.2-1); CREATININE 4.6 mg/dL (0.55-1.3)
[2022-11-09 08:41] LABS: TOT PROT 5.8 g/dl (6.4-8.2)
[2022-11-09] MEDS: CLOPIDOGREL BISULFATE 75 MG TABLET (FP) PO SCH (09:17)
[2022-11-09] MEDS: GABAPENTIN 300 MG CAPSULE PO SCH ×2 (09:17→21:58)
[2022-11-09] MEDS: hydrALAZINE HCL 50 MG TABLET (FP) PO SCH ×2 (09:17→21:58)
[2022-11-09] MEDS: ISOSORBIDE DINITRATE 5 MG TABLET PO SCH ×2 (09:18→12:05)
[2022-11-09] MEDS: HEPARIN NA (PORCINE) 5,000 UNITS/ML 1ML VIAL SQ SCH ×2 (09:18→21:59)
[2022-11-09] MEDS: BICALUTAMIDE 50 MG TABLET (FP) PO SCH (09:18)
[2022-11-09] MEDS ORDERED: FUROSEMIDE 40 MG TABLET (FP) PO SCH (10:00)
[2022-11-09] MEDS ORDERED: INSULIN (NOVOLOG) ASPART 100 UNITS/ML 10ML VIAL ONE ×3 (12:03→21:56)
[2022-11-09 12:42] VITALS: BMI 29.0
[2022-11-09] MEDS: FUROSEMIDE 40 MG TABLET (FP) PO SCH (13:33)
[2022-11-09] MEDS: ATORVASTATIN CA 40 MG TABLET (FP) PO SCH (21:58)
[2022-11-10] MEDS: INSULIN SLIDING SCALE (NOVOLOG) 1 VIAL SQ SCH ×4 (06:07→22:27)
[2022-11-10] MEDS: FUROSEMIDE 40 MG TABLET (FP) PO SCH ×2 (06:11→14:54)
[2022-11-10 08:26] LABS: BASO % 1.4 % (0-2.0); HEMATOCRIT 29.6 % (35.4-49); HEMOGLOBIN 9.9 GM/dL (11.7-16.9); LYMPH % 16.1 % (8-40); MCH 26.8 pg (25.7-33.7); MCHC 33.3 g/dl (32.0-35.9); MEAN CELL VOLUME 80.6 fl (80-96); MEAN PLT VOLUME 7.8 fl (7.5-11.1); MONO % 8.9 % (3.8-10.2); NEUT % 70.6 % (42.8-82.8); PLATELET COUNT 145 10^3/uL (134-434); RBC 3.67 M/mm3 (4.00-5.60); RDW 17.4 % (11.9-15.9); WHITE BLOOD COUNT 4.8 K/mm3 (4.0-10.0)
[2022-11-10 08:32] LABS: POTASSIUM 3.9 mmol/L (3.5-5.1)
[2022-11-10 08:40] LABS: ALBUMIN 2.5 g/dl (3.4-5.0); BLOOD UREA NITROGEN 79.4 mg/dL (7-18); CREATININE 4.6 mg/dL (0.55-1.3)
[2022-11-10 08:41] LABS: BILIRUBIN,TOTAL 0.5 mg/dL (0.2-1)
[2022-11-10 08:42] LABS: CALCIUM 8.8 mg/dL (8.5-10.1); TOT PROT 5.8 g/dl (6.4-8.2)
[2022-11-10] MEDS: GABAPENTIN 300 MG CAPSULE PO SCH ×2 (09:49→22:20)
[2022-11-10] MEDS: CLOPIDOGREL BISULFATE 75 MG TABLET (FP) PO SCH (09:49)
[2022-11-10] MEDS: BICALUTAMIDE 50 MG TABLET (FP) PO SCH (09:49)
[2022-11-10] MEDS: hydrALAZINE HCL 50 MG TABLET (FP) PO SCH ×2 (09:49→22:20)
[2022-11-10] MEDS: HEPARIN NA (PORCINE) 5,000 UNITS/ML 1ML VIAL SQ SCH ×2 (09:49→22:21)
[2022-11-10] MEDS: ISOSORBIDE DINITRATE 5 MG TABLET PO SCH ×2 (09:49→15:17)
[2022-11-10] MEDS ORDERED: INSULIN (NOVOLOG) ASPART 100 UNITS/ML 10ML VIAL ONE ×2 (12:31→22:26)
[2022-11-10] MEDS: ATORVASTATIN CA 40 MG TABLET (FP) PO SCH (22:20)
[2022-11-11] MEDS: FUROSEMIDE 40 MG TABLET (FP) PO SCH ×2 (06:07→14:24)
[2022-11-11] MEDS: INSULIN SLIDING SCALE (NOVOLOG) 1 VIAL SQ SCH ×2 (06:07→12:01)
[2022-11-11] MEDS ORDERED: INSULIN (NOVOLOG) ASPART 100 UNITS/ML 10ML VIAL ONE (09:01)
[2022-11-11] MEDS: CLOPIDOGREL BISULFATE 75 MG TABLET (FP) PO SCH (09:28)
[2022-11-11] MEDS: GABAPENTIN 300 MG CAPSULE PO SCH (09:28)
[2022-11-11] MEDS: hydrALAZINE HCL 50 MG TABLET (FP) PO SCH (09:28)
[2022-11-11] MEDS: ISOSORBIDE DINITRATE 10 MG TABLET PO SCH ×2 (09:29→14:24)
[2022-11-11] MEDS: BICALUTAMIDE 50 MG TABLET (FP) PO SCH (09:29)
[2022-11-11] MEDS: HEPARIN NA (PORCINE) 5,000 UNITS/ML 1ML VIAL SQ SCH (09:29)
[2022-11-11 12:06] VITALS: PULSE 86
[2022-11-11 14:49] VITALS: BP 130/74; RESP 21; TEMP 98.1
== END 2022-11-11 16:17 | disposition home or self-care (01) | DRG 194 ==
LOC: JER 10:19 → JERBED 11:07 → UNDOADMOB 11:07 → INTOOBSV 11:07 → JERBED 15:10 → OBSVTOIN 18:03 → J5S 21:32 → J4W 11-05 11:26
PROVIDERS: ADMIT Internal Medicine; ATTEND Internal Medicine
DX: I13.0 Hypertensive heart and chronic kidney disease with heart failure and stage 1 through stage 4 chronic kidney disease, or unspecified chronic kidney disease (principal); I50.23 Acute on chronic systolic (congestive) heart failure; I25.10 Atherosclerotic heart disease of native coronary artery without angina pectoris; E78.5 Hyperlipidemia, unspecified; E11.51 Type 2 diabetes mellitus with diabetic peripheral angiopathy without gangrene; E11.65 Type 2 diabetes mellitus with hyperglycemia; N40.0 Benign prostatic hyperplasia without lower urinary tract symptoms; I25.5 Ischemic cardiomyopathy; E11.40 Type 2 diabetes mellitus with diabetic neuropathy, unspecified; E11.22 Type 2 diabetes mellitus with diabetic chronic kidney disease; N18.4 Chronic kidney disease, stage 4 (severe); Z85.46 Personal history of malignant neoplasm of prostate; Z95.5 Presence of coronary angioplasty implant and graft; Z95.1 Presence of aortocoronary bypass graft
CPT/HCPCS: 0241U-QW; 36415; 71045-TC-FY; 74176-TC; 80053; 81003; 82550; 82553; 82962; 83735; 83880; 84100; 84484; 85025; 85610; 85730; 87086; 93005; 93010; 93306-TC; 97116-GP; 97162-GP; 99285-25; G0378; J1644